=== PATIENT | male | born 1935 | race Caucasian/White ===

== ENCOUNTER 2017-11-18 17:38 | Inpatient (IN) | payer OTHER, MEDICARE ==
[2017-11-18] VITALS (8 sets, daily range): BP systolic 101–229; BP diastolic 57–97; PULSE 92–128; RESP 16–24; TEMP 97.1–99.4; O2SAT 94–96
[~2017-11-18] VITALS: Ht 180.3 cm; Wt 95.0 kg
[~2017-11-18 17:38] MED LIST: ASPI81TA82 PO; CELE200 PO; FLUO20TA20 PO; LORTA10 PO; LOVA20TA PO; METO50TA PO
[2017-11-18] MEDS ORDERED: LOVA10TA PO (17:49)
[2017-11-18] MEDS ORDERED: TRAM50TA PO (17:49)
[2017-11-18] MEDS ORDERED: PARO20TA2 PO (17:49)
[2017-11-18] MEDS ORDERED: MEMA1TAB2 PO (17:49)
[2017-11-18] MEDS ORDERED: LANTUS2P SQ (17:49)
[2017-11-18] MEDS ORDERED: LOSA25TA PO (17:49)
[2017-11-18] MEDS ORDERED: LORazepam 2 MG/ML VIAL IV PUSH ONE ×2 (18:00→19:00)
[2017-11-18 18:05] LABS: AUTOMATED NEUTROPHIL # 3.8 TH/MM3 (1.8-7.7); BASOPHIL # 0.1 TH/MM3 (0-0.2); BASOPHIL % 2.5 % (0.0-2.0); EOSINOPHIL % 0.4 % (0.0-4.0); HEMATOCRIT 39.7 % (39.0-51.0); HEMOGLOBIN 13.1 GM/DL (13.0-17.0); LYMPH % 3.7 % (9.0-44.0); LYMPHOCYTE # 0.1 TH/MM3 (1.0-4.8); MEAN CELL VOLUME 95.9 FL (80.0-100.0); MEAN CORPUSCULAR HEMOGLOBIN 31.6 PG (27.0-34.0); MEAN PLATELET VOLUME 7.3 FL (7.0-11.0); MONO % 0.6 % (0.0-8.0); NEUT % 92.8 % (16.0-70.0); PLATELET COUNT 265 TH/MM3 (150-450); RED BLOOD COUNT 4.14 MIL/MM3 (4.50-5.90); RED CELL DISTRIBUTION WIDTH 15.2 % (11.6-17.2)
--- NOTE | 2017-11-18 18:13 | PD ---
HPI Chief Complaint: Fall Time Seen by Provider: 17:40 Travel History International Travel<30 days: No Contact w/Intl Traveler<30days: No Traveled to known affect area: No History of Present Illness HPI This is a 81-year-old male who presents to the emergency department having had a fall at home. It was unwitnessed by his family. The patient has early dementia and has a history of alcoholic cirrhosis. His daughter thinks he may not of drink as much as usual because there is still some alcohol in the house. Patient does not think he hit his head but he is confused. He is reporting some pain on his left arm where he has some abrasions. Otherwise he denies any pain. History is limited as the patient is confused. PFSH Past Medical History Cancer: Yes (Bladder) Cirrhosis: Yes Dementia: Yes Diabetes: Yes Patient Takes Glucophage: No Hypertension: Yes Tetanus Vaccination: > 5 Years Influenza Vaccination: No Past Surgical History Genitourinary Surgery: Yes (Bladder R/T CA) Other Surgery: Yes (Back) Social History Alcohol Use: Yes (2 ounces liquor/day) Tobacco Use: Yes (1/2 PPD) Substance Use: No Allergies-Medications (Allergen,Severity, Reaction): Coded Allergies: No Known Allergies (Unverified Adverse Reaction, Unknown, 11/18/17) Reported Meds & Prescriptions Reported Meds & Active Scripts Active Reported Tramadol (Tramadol HCl) 50 Mg Tab 100 Mg PO Q4-6H PRN Paroxetine (Paroxetine HCl) 20 Mg Tab 20 Mg PO DAILY Lovastatin 10 Mg Tab 10 Mg PO DAILY Losartan (Losartan Potassium) 25 Mg Tab 12.5 Mg PO DAILY Memantine 10 Mg Tab 10 Mg PO BID Lantus Inj (Insulin Glargine) 1,000 Unit/10 Ml Vial 34 Units SQ DAILY Review of Systems ROS Limitations: Poor Historian Physical Exam Narrative GENERAL: Tremulous SKIN: Skin tear on the left forearm and the left dorsal aspect of the hand HEAD: Atraumatic. Normocephalic. EYES: Pupils equal and round. No injection or drainage. ENT: Moist mucous membranes NECK: Trachea midline. CARDIOVASCULAR: Regular rate and rhythm. No murmur appreciated. RESPIRATORY: Clear to auscultation. Breath sounds equal bilaterally. GASTROINTESTINAL: Abdomen soft, distended, nontender with hepatomegaly MUSCULOSKELETAL: No obvious deformities. NEUROLOGICAL: Awake and alert. No obvious cranial nerve deficits. Moving all extremities. PSYCHIATRIC: Appropriate mood and affect; insight and judgment normal. Data Data Last Documented VS Vital Signs Date Time Temp Pulse Resp B/P (MAP) Pulse Ox O2 Delivery O2 Flow Rate FiO2 11/18/17 18:00 99.4 128 22 229/97 (141) 95 Nasal Cannula 2.00 Orders Orders Complete Blood Count With Diff (11/18/17 17:47) Comprehensive Metabolic Panel (11/18/17 17:47) Ct Brain W/O Iv Contrast(Rout) (11/18/17 ) Lorazepam Inj (Ativan Inj) (11/18/17 18:00) ^ Insert Iv (11/18/17 17:47) Lorazepam Inj (Ativan Inj) (11/18/17 19:00) Labs Laboratory Tests Test 11/18/17 17:50 White Blood Count 4.0 TH/MM3 Red Blood Count 4.14 MIL/MM3 Hemoglobin 13.1 GM/DL Hematocrit 39.7 % Mean Corpuscular Volume 95.9 FL Mean Corpuscular Hemoglobin 31.6 PG Mean Corpuscular Hemoglobin Concent 33.0 % Red Cell Distribution Width 15.2 % Platelet Count 265 TH/MM3 Mean Platelet Volume 7.3 FL Neutrophils (%) (Auto) 92.8 % Lymphocytes (%) (Auto) 3.7 % Monocytes (%) (Auto) 0.6 % Eosinophils (%) (Auto) 0.4 % Basophils (%) (Auto) 2.5 % Neutrophils # (Auto) 3.8 TH/MM3 Lymphocytes # (Auto) 0.1 TH/MM3 Monocytes # (Auto) 0.0 TH/MM3 Eosinophils # (Auto) 0.0 TH/MM3 Basophils # (Auto) 0.1 TH/MM3 CBC Comment DIFF FINAL Differential Comment Blood Urea Nitrogen 30 MG/DL Creatinine 1.80 MG/DL Random Glucose 307 MG/DL Total Protein 6.1 GM/DL Albumin 2.5 GM/DL Calcium Level 7.4 MG/DL Alkaline Phosphatase 158 U/L Aspartate Amino Transf (AST/SGOT) 8 U/L Alanine Aminotransferase (ALT/SGPT) 28 U/L Total Bilirubin 0.3 MG/DL Sodium Level 140 MEQ/L Potassium Level 3.8 MEQ/L Chloride Level 114 MEQ/L Carbon Dioxide Level 17.1 MEQ/L Anion Gap 9 MEQ/L Estimat Glomerular Filtration Rate 37 ML/MIN Protein Corrected Calcium 7.9 MG/DL MDM Medical Decision Making Medical Screen Exam Complete: Yes Emergency Medical Condition: Yes Interpretation(s) Temperature is 99.4, tachycardic, hypertensive No leukocytosis 92% neutrophils Renal insufficiency worse from prior Hyperglycemia Bicarb is 17 CT of the head: No acute process Differential Diagnosis Acute alcohol withdrawal, delirium tremens, intracranial hemorrhage, dehydration , sepsis Narrative Course This is a 81-year-old male who presents to the emergency department with a history of heavy alcohol use and dementia. He had a fall earlier today and is more confused per his family. He is very tremulous on exam. He is also tender in the right and left upper abdomen. He was hypertensive and tachycardic on arrival concerning for acute alcohol withdrawal. He was given 1 mg of Ativan. His blood pressure improved but he continued to be tremulous. He was given additional [address] of the head is unremarkable. Labs demonstrate some dehydration. On my impression the patient appears to be more dyspneic during his stay and I am concerned he is deteriorating. I discussed this with Dr. Byrd in the family. Chest x-ray and CT abdomen and pelvis will be obtained. Patient will likely require admission but disposition will be made after imaging. Cynthia Johnson MD November 18, 2017 18:13
[2017-11-18 18:31] LABS: ALBUMIN 2.5 GM/DL (3.4-5.0); BICARBONATE 17.1 MEQ/L (21.0-32.0); CALCIUM 7.4 MG/DL (8.5-10.1); CALCIUM-PROTEIN CORRECTED 7.9 MG/DL (8.5-10.1); CREATININE 1.8 MG/DL (0.60-1.30); TOTAL BILIRUBIN ADULT 0.3 MG/DL (0.2-1.0); TOTAL PROTEIN 6.1 GM/DL (6.4-8.2)
--- NOTE | 2017-11-18 18:37 | RADRPT ---
EXAM DATE/TIME: 11/18/2017 18:09 [facility] COMPARISON: No previous studies available for comparison. INDICATIONS : Unwitnessed fall. Dementia. RADIATION DOSE: 56.43 CTDIvol (mGy) MEDICAL HISTORY : Hypertension. Carcinoma, bladder. Dementia. SURGICAL HISTORY : Bladder surgery. ENCOUNTER: Initial ACUITY: 1 day PAIN SCALE: Non-responsive LOCATION: cranial TECHNIQUE: Multiple contiguous axial images were obtained of the head. Using automated exposure control and adj ustment of the mA and/or kV according to patient size, radiation dose was kept as low as reasonably a chievable to obtain optimal diagnostic quality images. DICOM format image data is available electro nically for review and comparison. FINDINGS: CEREBRUM: The ventricles and cortical sulci are widened. There is decreased density in the periventricular whit e matter. No evidence of midline shift, mass lesion, hemorrhage or acute infarction. No extra-axial fluid collections are seen. POSTERIOR FOSSA: The cerebellum and brainstem are intact. The 4th ventricle is midline. The cerebellopontine angle i s unremarkable. EXTRACRANIAL: The visualized portion of the orbits is intact. There is focal mucosal disease at the right maxillary and left sphenoid sinuses. SKULL: The calvaria is intact. No evidence of skull fracture. CONCLUSION: 1. No acute intracranial abnormality seen. 2. Age related atrophy and suspected small vessel ischemic change in the white matter. 3. Sinus disease. Binh Sosa MD on November 18, 2017 at 18:33 Board Certified Radiologist. This report was verified electronically.
--- NOTE | 2017-11-18 20:26 | RADRPT ---
EXAM DATE/TIME: 11/18/2017 19:53 [facility] COMPARISON: No previous studies available for comparison. INDICATIONS : Abdominal pain post fall. ORAL CONTRAST: No oral contrast ingested. RADIATION DOSE: 20.53 CTDIvol (mGy) MEDICAL HISTORY : Hypertension. Cirrhosis. Carcinoma, bladder.Diabetes. Dementia. SURGICAL HISTORY : Bladder. ENCOUNTER: Initial ACUITY: 1 day PAIN SCALE: 4/10 LOCATION: Right abdomen TECHNIQUE: Volumetric scanning of the abdomen and pelvis was performed. Using automated exposure control and ad justment of the mA and/or kV according to patient size, radiation dose was kept as low as reasonably achievable to obtain optimal diagnostic quality images. DICOM format image data is available electro nically for review and comparison. FINDINGS: LOWER LUNGS: The visualized lower lungs are clear. LIVER: Homogeneous density without lesion. There is no dilation of the biliary tree. No calcified gallston es. SPLEEN: Normal size without lesion. PANCREAS: Within normal limits. KIDNEYS: There are low density masses seen bilaterally likely related to cysts. The largest mass is seen at th e anterior mid to inferior left kidney measuring 3.6 cm. These low-density masses are nonspecific on this noncontrast CT examination. There is mild dilatation of the collecting systems bilaterally. The ureters extending to the right upper pelvis where they enter a segment of bowel likely used for an il eal loop that then empties into the residual bladder or a neobladder. There is a 1.9 cm stone seen in this bladder. ADRENAL GLANDS: Within normal limits. VASCULAR: There is no aortic aneurysm. Atherosclerotic calcifications are seen. BOWEL/MESENTERY: Scattered colonic diverticula are seen without inflammation. ABDOMINAL WALL: There is small umbilical hernia containing mesenteric fat. RETROPERITONEUM: There is no lymphadenopathy. BLADDER: There is either a residual bladder or neobladder seen. This has an elongated shape. Both ureters ente ring this through a common segment of small bowel in the superior right lateral aspect of this bladde r like structure. There is a 1.9 cm stone within the bladder. REPRODUCTIVE: The patient is status post prostatectomy. INGUINAL: There is no lymphadenopathy or hernia. MUSCULOSKELETAL: There is degenerative change in the lumbar spine. Old healed rib fractures are seen. There is promine nt concavity to the superior aspect of L4. This appears chronic. CONCLUSION: 1. Status post prostatectomy and either partial or total cystectomy with a postoperative appearance o f the urinary bladder. There is a 1.9 cm stone seen within the urinary bladder. 2. There is mild dilatation of the collecting systems bilaterally. No prior studies are available for comparison. 3. Both ureters enter a segment of bowel in the right lower quadrant then empties into this neobladde r at the superior right lateral aspect of the bladder. 4. Low density masses in the kidneys bilaterally likely related to cysts although these are nonspecif ic on this noncontrast CT examination. Scattered colonic diverticula. 5. Small umbilical hernia containing mesenteric fat. 6. Chronic bony change. Binh Sosa MD on November 18, 2017 at 20:15 Board Certified Radiologist. This report was verified electronically.
[2017-11-18] MEDS ORDERED: SODIUM CHLORID 0.9% 500 ML INJ 500 ML IV ONE (20:30)
[2017-11-18 21:00] LABS: BILIRUBIN, URINE NEG (NEG); BLOOD, URINE SMALL (NEG); GLUCOSE,URINE 100 mg/dL (NEG); KETONE, URINE NEG (NEG); NITRITE,URINE POS (NEG); PH, URINE GREATER/EQUAL 9.0 (5.0-8.5); URINE LEUKOCYTE ESTERASE LARGE (NEG)
[2017-11-18 21:12] LABS: URINE COLOR STRAW (YELLW/STRAW)
[2017-11-18 21:13] LABS: BACTERIA, URINE MANY /hpf; MUCUS URINE RARE /lpf (OCC); RBC, URINE 0-3 /hpf (0-3); TRANSITIONAL EPI CELLS, URINE 0-2 /hpf
[2017-11-18 21:14] LABS: TRIPLE PHOSPHATE CRYSTAL,URINE FEW /hpf
--- NOTE | 2017-11-18 21:16 | RADRPT ---
EXAM DATE/TIME: 11/18/2017 20:23 [facility] COMPARISON: No previous studies available for comparison. INDICATIONS : Short of breath. MEDICAL HISTORY : Hypertension. Cirrhosis. Carcinoma, bladder.Diabetes. Dementia. SURGICAL HISTORY : None. ENCOUNTER: Initial ACUITY: 1 day PAIN SCORE: Non-responsive. LOCATION: Bilateral chest FINDINGS: A single view of the chest demonstrates the lungs to be symmetrically aerated without evidence of mas s, infiltrate or effusion. There is elevation of the left hemidiaphragm. The cardiomediastinal conto urs are unremarkable. Osseous structures are intact. CONCLUSION: No acute disease. There is elevation of the left hemidiaphragm. Binh Sosa MD on November 18, 2017 at 21:14 Board Certified Radiologist. This report was verified electronically.
[2017-11-18] MEDS ORDERED: cefTRIAXone INJ 1,000 MG in SODIUM CHLORIDE 0.9% INJ 100 ML IV ONE (21:30)
--- NOTE | 2017-11-18 21:33 | PD ---
Physical Exam Narrative Patient signed out to me by Dr. Johnson. Please see her documentation for complete details. Briefly, patient is a 81 year old male brought in by family after a fall today. Patient has some degree of dementia and is a poor historian. He was noted to be hypertensive and tachycardic by the previous provider. He does have a history of alcoholism and was treated with Ativan for possible withdrawal. He is tremulous on exam and tachycardic. Data Data Last Documented VS Vital Signs Date Time Temp Pulse Resp B/P (MAP) Pulse Ox O2 Delivery O2 Flow Rate FiO2 11/18/17 21:05 92 16 111/64 (80) 96 Nasal Cannula 2.00 11/18/17 18:00 99.4 Orders Orders Complete Blood Count With Diff (11/18/17 17:47) Comprehensive Metabolic Panel (11/18/17 17:47) Ct Brain W/O Iv Contrast(Rout) (11/18/17 ) Lorazepam Inj (Ativan Inj) (11/18/17 18:00) ^ Insert Iv (11/18/17 17:47) Lorazepam Inj (Ativan Inj) (11/18/17 19:00) Chest, Single Ap (11/18/17 ) Lactic Acid (11/18/17 19:11) Blood Culture (11/18/17 19:11) Arterial Blood Gas (Abg) (11/18/17 ) Ct Abd/Pel W/O Iv Contrast (11/18/17 ) Urinalysis - C+S If Indicated (11/18/17 19:13) Electrocardiogram (11/18/17 ) Lipase (11/18/17 17:50) Sodium Chlorid 0.9% 500 Ml Inj (Ns 500 M (11/18/17 20:30) Urine Culture (11/18/17 20:50) Ceftriaxone Inj (Rocephin Inj) (11/18/17 21:30) Admit Order (Ed Use Only) (11/18/17 ) Labs Laboratory Tests Test 11/18/17 17:50 11/18/17 19:30 11/18/17 19:40 11/18/17 20:50 White Blood Count 4.0 TH/MM3 Red Blood Count 4.14 MIL/MM3 Hemoglobin 13.1 GM/DL Hematocrit 39.7 % Mean Corpuscular Volume 95.9 FL Mean Corpuscular Hemoglobin 31.6 PG Mean Corpuscular Hemoglobin Concent 33.0 % Red Cell Distribution Width 15.2 % Platelet Count 265 TH/MM3 Mean Platelet Volume 7.3 FL Neutrophils (%) (Auto) 92.8 % Lymphocytes (%) (Auto) 3.7 % Monocytes (%) (Auto) 0.6 % Eosinophils (%) (Auto) 0.4 % Basophils (%) (Auto) 2.5 % Neutrophils # (Auto) 3.8 TH/MM3 Lymphocytes # (Auto) 0.1 TH/MM3 Monocytes # (Auto) 0.0 TH/MM3 Eosinophils # (Auto) 0.0 TH/MM3 Basophils # (Auto) 0.1 TH/MM3 CBC Comment DIFF FINAL Differential Comment Blood Urea Nitrogen 30 MG/DL Creatinine 1.80 MG/DL Random Glucose 307 MG/DL Total Protein 6.1 GM/DL Albumin 2.5 GM/DL Calcium Level 7.4 MG/DL Alkaline Phosphatase 158 U/L Aspartate Amino Transf (AST/SGOT) 8 U/L Alanine Aminotransferase (ALT/SGPT) 28 U/L Total Bilirubin 0.3 MG/DL Sodium Level 140 MEQ/L Potassium Level 3.8 MEQ/L Chloride Level 114 MEQ/L Carbon Dioxide Level 17.1 MEQ/L Anion Gap 9 MEQ/L Estimat Glomerular Filtration Rate 37 ML/MIN Protein Corrected Calcium 7.9 MG/DL Lipase 126 U/L Blood Gas Puncture Site RT BRACHIAL Blood Gas Patient Temperature 98.6 Blood Gas HCO3 15 mmol/L Blood Gas Base Excess -9.9 mmol/L Blood Gas Oxygen Saturation 94 % Arterial Blood pH 7.34 Arterial Blood Partial Pressure CO2 28 mmHG Arterial Blood Partial Pressure O2 90 mmHG Arterial Blood Oxygen Content 19.0 Vol % Arterial Blood Carboxyhemoglobin 2.2 % Arterial Blood Methemoglobin 1.4 % Blood Gas Hemoglobin 14.4 G/DL Oxygen Delivery Device NASAL CANNULA Blood Gas Liter Flow 4 L/M Lactic Acid Level 3.7 mmol/L Urine Collection Type CLEAN CATCH Urine Color STRAW Urine Turbidity CLOUDY Urine pH GREATER/EQUAL 9.0 Urine Specific [place] 1.015 Urine Protein 100 mg/dL Urine Glucose (UA) 100 mg/dL Urine Ketones NEG mg/dL Urine Occult Blood SMALL Urine Nitrite POS Urine Bilirubin NEG Urine Urobilinogen 0.2 MG/DL Urine Leukocyte Esterase LARGE Urine RBC 0-3 /hpf Urine WBC 6-8 /hpf Urine Transitional Epithelial Cells 0-2 /hpf Urine Triple Phosphate Crystals FEW /hpf Urine Bacteria MANY /hpf Urine Mucus RARE /lpf Microscopic Urinalysis Comment CULTURE INDICATED MDM Supervised Visit with [facility]: No Narrative Course Labs show dehydration with a BUN of 30 and Cr of 1.8. Lactic acid is 3.7. Urinalysis is positive for UTI. CXR and ct/abdomen and pelvis show no acute abnormalities. Last [address] 11/18/17 0000 Signed Impressions: Service Date/Time: Saturday, November 18, 2017 18:09 - CONCLUSION: 1. No acute intracranial abnormality seen. 2. Age related atrophy and suspected small vessel ischemic change in the white matter. 3. Sinus disease. Binh Sosa MD Chest X-Ray 11/18/17 0000 Signed Impressions: Service Date/Time: Saturday, November 18, 2017 20:23 - CONCLUSION: No acute disease. There is elevation of the left hemidiaphragm. Binh Sosa MD Abdomen/Pelvis CT 11/18/17 0000 Signed Impressions: Service Date/Time: Saturday, November 18, 2017 19:53 - CONCLUSION: 1. Status post prostatectomy and either partial or total cystectomy with a postoperative appearance of the urinary bladder. There is a 1.9 cm stone seen within the urinary bladder. 2. There is mild dilatation of the collecting systems bilaterally. No prior studies are available for comparison. 3. Both ureters enter a segment of bowel in the right lower quadrant then empties into this neobladder at the superior right lateral aspect of the bladder. 4. Low density masses in the kidneys bilaterally likely related to cysts although these are nonspecific on this noncontrast CT examination. Scattered colonic diverticula. 5. Small umbilical hernia containing mesenteric fat. 6. Chronic bony change. Binh Sosa MD Vitals normalized with Ativan. Given IVF and Rocephin. Admitted for further management. Diagnosis Primary Impression: UTI (urinary tract infection) Qualified Codes: N30.00 - Acute cystitis without hematuria Additional Impressions: Altered mental status Qualified Codes: R41.82 - Altered mental status, unspecified Dehydration Withdrawal symptoms, alcohol Qualified Codes: F10.230 - Alcohol dependence with withdrawal, uncomplicated Admitting Information Admitting Physician Requests: Admit Keara Byrd MD November 18, 2017 21:33
[2017-11-18] MEDS ORDERED: SODIUM CHLORIDE 0.9% FLUSH 10 ML FLUSH IV FLUSH PRN (21:45)
[2017-11-18] MEDS ORDERED: LACTULOSE SYRUP 20 GM/30 ML CUP PO PRN (21:45)
[2017-11-18] MEDS: INSULIN DETEMIR 100 UNITS/ML VIAL SQ SCH (21:45)
[2017-11-18] MEDS ORDERED: LORazepam 2 MG TAB PO PRN (21:45)
[2017-11-18] MEDS ORDERED: LORazepam 1 MG TAB PO PRN (21:45)
[2017-11-18] MEDS ORDERED: SENNOSIDES 8.6 MG TAB PO PRN (21:45)
[2017-11-18] MEDS ORDERED: METOPROLOL TARTRATE 25 MG TAB PO ONE (21:45)
[2017-11-18] MEDS ORDERED: THIAMINE HCL 100 MG TAB PO ONE (21:45)
[2017-11-18] MEDS ORDERED: NALOXONE HCL 0.4 MG/ML AMP IV PUSH PRN (21:45)
[2017-11-18] MEDS ORDERED: SODIUM BICARBONATE 650 MG TAB PO ONE (21:45)
[2017-11-18] MEDS ORDERED: FLUMAZENIL 0.5 MG/5 ML VIAL IV PUSH PRN (21:45)
[2017-11-18] MEDS ORDERED: LORazepam 2 MG/ML VIAL IV PUSH PRN ×3 (21:45)
[2017-11-18] MEDS ORDERED: BISACODYL 10 MG SUPP RECTAL PRN (21:45)
[2017-11-18] MEDS ORDERED: MAGNESIUM HYDROXIDE SUSP 30 ML CUP PO PRN (21:45)
[2017-11-18] MEDS: SODIUM CHLOR 0.9% 1000 ML INJ 1,000 ML IV SCH (21:59)
[2017-11-18] MEDS ORDERED: SODIUM BICARBONATE 325 MG TAB PO ONE (22:45)
[2017-11-19] VITALS (7 sets, daily range): BP systolic 109–139; BP diastolic 53–65; PULSE 70–88; RESP 19–22; TEMP 96.6–98.3; O2SAT 95–96
[2017-11-19 07:20] LABS: ALBUMIN 2.3 GM/DL (3.4-5.0); ALKALINE PHOSPHATASE 133 U/L (45-117); ALT (GPT) 24 U/L (12-78); AST (GOT) 9 U/L (15-37); BICARBONATE 17.5 MEQ/L (21.0-32.0); BLOOD UREA NITROGEN 40 MG/DL (7-18); CALCIUM 8.2 MG/DL (8.5-10.1); CHLORIDE 119 MEQ/L (98-107); GLOMERULAR FILTRATION RATE 28 ML/MIN (>89); GLUCOSE,RANDOM 197 MG/DL (74-106); SODIUM (NA) 143 MEQ/L (136-145); TOTAL BILIRUBIN ADULT 0.3 MG/DL (0.2-1.0); TOTAL PROTEIN 6.1 GM/DL (6.4-8.2)
[2017-11-19 07:24] LABS: AUTOMATED NEUTROPHIL # 23.2 TH/MM3 (1.8-7.7); BASOPHIL # 0.1 TH/MM3 (0-0.2); BASOPHIL % 0.2 % (0.0-2.0); EOSINOPHIL # 0.1 TH/MM3 (0-0.4); EOSINOPHIL % 0.3 % (0.0-4.0); HEMOGLOBIN 12.5 GM/DL (13.0-17.0); LYMPH % 5.6 % (9.0-44.0); LYMPHOCYTE # 1.5 TH/MM3 (1.0-4.8); MEAN CELL VOLUME 96.2 FL (80.0-100.0); MEAN CORPUSCULAR HEMOGLOBIN 31.6 PG (27.0-34.0); MEAN CORPUSCULAR HGB CONC 32.9 % (32.0-36.0); MEAN PLATELET VOLUME 8.2 FL (7.0-11.0); MONO % 4.9 % (0.0-8.0); MONOCYTE # 1.3 TH/MM3 (0-0.9); PLATELET COUNT 333 TH/MM3 (150-450); RED BLOOD COUNT 3.95 MIL/MM3 (4.50-5.90); RED CELL DISTRIBUTION WIDTH 15.8 % (11.6-17.2); WHITE BLOOD COUNT 26.2 TH/MM3 (4.0-11.0)
[2017-11-19 07:58] LABS: BANDS 15 % (0-6); LYMPHOCYTES 6 % (9-44); METAMYELOCYTES 2 % (0-1); MONOCYTES 4 % (0-8); NEUTROPHIL # MANUAL DIFF 23.6 TH/MM3 (1.8-7.7); POLYS (SEG NEUTROPHILS) 73 % (16-70)
[2017-11-19] MEDS: SODIUM CHLOR 0.9% 1000 ML INJ 1,000 ML IV SCH (08:00)
[2017-11-19] MEDS: INSULIN ASPART SUPPLEMENTAL SCALE SQ SCH ×4 (08:06→21:00)
[2017-11-19] MEDS: INSULIN DETEMIR 100 UNITS/ML VIAL SQ SCH ×2 (08:06→21:03)
[2017-11-19] MEDS: THIAMINE HCL 100 MG TAB PO SCH (08:08)
[2017-11-19] MEDS: PRAVASTATIN SOD 10 MG TAB PO SCH (08:08)
[2017-11-19] MEDS: MEMANTINE HCL 10 MG TAB PO SCH ×2 (08:08→20:59)
[2017-11-19] MEDS: PARoxetine HCL 20 MG TAB PO SCH (08:08)
[2017-11-19] MEDS: SODIUM CHLORIDE 0.9% FLUSH 10 ML FLUSH IV FLUSH SCH ×2 (09:00→20:59)
--- NOTE | 2017-11-19 09:21 | EKG ---
Date Performed: 11/18/2017 Time Performed: 19:25:47 PTAGE: 81 years EKG: SINUS TACHYCARDIA WITH FREQUENT VENTRICULAR PREMATURE COMPLEXES MARKED LEFT AXIS DEVIATION LOW QRS VOLTAGE IN PRECORDIAL LEADS MINIMAL ST DEPRESSION ABNORMAL ECG INTERPRETATION BASED ON A DEFA ULT AGE OF 42 YEARS NO PREVIOUS TRACING DOCTOR: Olu Ohara Interpretating Date/Time 11/19/2017 09:16:06
--- NOTE | 2017-11-19 12:14 | HHI.HP ---
[facility] Anirudh Antoine MD Admission Diagnosis UTI, AMS, alcohol withdrawal Diagnoses: Chief Complaint: Confusion Travel History International Travel<30 Days: No Contact w/Intl Traveler <30 Da: No Traveled to Known Affected Are: No History of Present Illness The patient is a 81-year-old male with a past medical history of alcoholic cirrhosis and dementia who is presenting to the hospital with altered mental status and recent falls. The patient does not know that he is in the hospital and thinks he is at home. He denies any symptoms. He says he is not having any pain with urination. He says he is not having any shortness of breath or pain. He says he has 2 whiskey drinks daily. He says that he smokes 1 pack per day and has no intention of quitting. Per report the patient fell down at home and it was unwitnessed. The patient says he is hungry. He was able to work with physical therapy earlier. Discussed with nursing at the bedside. He has not been requiring Ativan today. Review of Systems Except as stated in HPI: all other systems reviewed are Neg Past Family Social History Past Medical History Bladder cancer Alcoholic cirrhosis Dementia Diabetes Hypertension Past Surgical History Bladder surgery Back surgery Allergies: Coded Allergies: No Known Allergies (Unverified Allergy, Unknown, 11/18/17) Family History Pt unable to elaborate Social History The pt drinks two whiskey drinks daily. He smokes 1 PPD. Physical Exam Vital Signs Vital Signs Date Time Temp Pulse Resp B/P (MAP) Pulse Ox O2 Delivery O2 Flow Rate FiO2 11/19/17 08:00 97.7 88 20 128/59 (82) 95 11/19/17 04:00 96.9 73 20 109/53 (71) 96 11/19/17 00:11 81 11/18/17 23:30 94 Nasal Cannula 2.00 11/18/17 23:30 97.1 94 20 122/57 (78) 94 11/18/17 22:13 96 16 114/57 (76) 96 Nasal Cannula 2.00 11/18/17 21:05 92 16 111/64 (80) 96 Nasal Cannula 2.00 11/18/17 21:01 98 16 111/64 (80) 96 Nasal Cannula 2.00 11/18/17 20:22 98 16 101/64 (76) 96 Nasal Cannula 2.00 11/18/17 19:07 123 24 126/68 (87) 95 Nasal Cannula 2.00 11/18/17 18:00 99.4 128 22 229/97 (141) 95 Nasal Cannula 2.00 11/18/17 17:40 128 22 95 Nasal Cannula 2.00 11/18/17 17:40 99.4 128 22 229/97 (141) 95 Physical Exam GENERAL: No distress. SKIN: Skin tear on the left forearm and the left dorsal aspect of the hand. HEAD: Atraumatic. Normocephalic. EYES: Pupils equal and round. No injection or drainage. ENT: Moist mucous membranes NECK: Trachea midline. CARDIOVASCULAR: Regular rate and rhythm. No murmur appreciated. RESPIRATORY: Clear to auscultation. Breath sounds equal bilaterally. GASTROINTESTINAL: Abdomen soft, distended, nontender. MUSCULOSKELETAL: No obvious deformities. No lower extremity edema. NEUROLOGICAL: Confused. Slightly tremulous. No obvious cranial nerve deficits. Moving all extremities. PSYCHIATRIC: Calm. Laboratory Laboratory Tests Test 11/18/17 17:50 11/18/17 19:30 11/18/17 19:40 11/18/17 20:50 White Blood Count 4.0 Red Blood Count 4.14 Hemoglobin 13.1 Hematocrit 39.7 Mean Corpuscular Volume 95.9 Mean Corpuscular Hemoglobin 31.6 Mean Corpuscular Hemoglobin Concent 33.0 Red Cell Distribution Width 15.2 Platelet Count 265 Mean Platelet Volume 7.3 Neutrophils (%) (Auto) 92.8 Lymphocytes (%) (Auto) 3.7 Monocytes (%) (Auto) 0.6 Eosinophils (%) (Auto) 0.4 Basophils (%) (Auto) 2.5 Neutrophils # (Auto) 3.8 Lymphocytes # (Auto) 0.1 Monocytes # (Auto) 0.0 Eosinophils # (Auto) 0.0 Basophils # (Auto) 0.1 CBC Comment DIFF FINAL Differential Comment Blood Urea Nitrogen 30 Creatinine 1.80 Random Glucose 307 Total Protein 6.1 Albumin 2.5 Calcium Level 7.4 Alkaline Phosphatase 158 Aspartate Amino Transf (AST/SGOT) 8 Alanine Aminotransferase (ALT/SGPT) 28 Total Bilirubin 0.3 Sodium Level 140 Potassium Level 3.8 Chloride Level 114 Carbon Dioxide Level 17.1 Anion Gap 9 Estimat Glomerular Filtration Rate 37 Protein Corrected Calcium 7.9 Lipase 126 Blood Gas Puncture Site RT BRACHIAL Blood Gas Patient Temperature 98.6 Blood Gas HCO3 15 Blood Gas Base Excess -9.9 Blood Gas Oxygen Saturation 94 Arterial Blood pH 7.34 Arterial Blood Partial Pressure CO2 28 Arterial Blood Partial Pressure O2 90 Arterial Blood Oxygen Content 19.0 Arterial Blood Carboxyhemoglobin 2.2 Arterial Blood Methemoglobin 1.4 Blood Gas Hemoglobin 14.4 Oxygen Delivery Device NASAL CANNULA Blood Gas Liter Flow 4 Lactic Acid Level 3.7 Urine Collection Type CLEAN CATCH Urine Color STRAW Urine Turbidity CLOUDY Urine pH GREATER/EQUAL 9.0 Urine Specific [place] 1.015 Urine Protein 100 Urine Glucose (UA) 100 Urine Ketones NEG Urine Occult Blood SMALL Urine Nitrite POS Urine Bilirubin NEG Urine Urobilinogen 0.2 Urine Leukocyte Esterase LARGE Urine RBC 0-3 Urine WBC 6-8 Urine Transitional Epithelial Cells 0-2 Urine Triple Phosphate Crystals FEW Urine Bacteria MANY Urine Mucus RARE Microscopic Urinalysis Comment CULTURE INDICATED Test 11/19/17 06:28 White Blood Count 26.2 Red Blood Count 3.95 Hemoglobin 12.5 Hematocrit 38.0 Mean Corpuscular Volume 96.2 Mean Corpuscular Hemoglobin 31.6 Mean Corpuscular Hemoglobin Concent 32.9 Red Cell Distribution Width 15.8 Platelet Count 333 Mean Platelet Volume 8.2 Neutrophils (%) (Auto) 89.0 Lymphocytes (%) (Auto) 5.6 Monocytes (%) (Auto) 4.9 Eosinophils (%) (Auto) 0.3 Basophils (%) (Auto) 0.2 Neutrophils # (Auto) 23.2 Lymphocytes # (Auto) 1.5 Monocytes # (Auto) 1.3 Eosinophils # (Auto) 0.1 Basophils # (Auto) 0.1 CBC Comment AUTO DIFF Differential Total Cells Counted 100 Neutrophils % (Manual) 73 Band Neutrophils % 15 Lymphocytes % 6 Monocytes % 4 Neutrophils # (Manual) 23.6 Metamyelocytes 2 Differential Comment FINAL DIFF MANUAL Platelet Estimate NORMAL Platelet Morphology Comment NORMAL Blood Urea Nitrogen 40 Creatinine 2.30 Random Glucose 197 Total Protein 6.1 Albumin 2.3 Calcium Level 8.2 Alkaline Phosphatase 133 Aspartate Amino Transf (AST/SGOT) 9 Alanine Aminotransferase (ALT/SGPT) 24 Total Bilirubin 0.3 Sodium Level 143 Potassium Level 4.8 Chloride Level 119 Carbon Dioxide Level 17.5 Anion Gap 7 Estimat Glomerular Filtration Rate 28 Date/Time Source Procedure Growth Status 11/18/17 19:40 Blood Peripheral Aerobic Blood Culture - Preliminary NO GROWTH IN 1 DAY Resulted 11/18/17 19:40 Blood Peripheral Anaerobic Blood Culture - Preliminary NO GROWTH IN 1 DAY Resulted 11/18/17 20:50 Urine Clean Catch Urine Culture Pending Received Result Diagram: 11/19/1728 11/19/17627 Imaging Last Impressions Head CT 11/18/17 0000 Signed Impressions: Service Date/Time: Saturday, November 18, 2017 18:09 - CONCLUSION: 1. No acute intracranial abnormality seen. 2. Age related atrophy and suspected small vessel ischemic change in the white matter. 3. Sinus disease. Binh Sosa MD Chest X-Ray 11/18/17 0000 Signed Impressions: Service Date/Time: Saturday, November 18, 2017 20:23 - CONCLUSION: No acute disease. There is elevation of the left hemidiaphragm. Binh Sosa MD Abdomen/Pelvis CT 11/18/17 0000 Signed Impressions: Service Date/Time: Saturday, November 18, 2017 19:53 - CONCLUSION: 1. Status post prostatectomy and either partial or total cystectomy with a postoperative appearance of the urinary bladder. There is a 1.9 cm stone seen within the urinary bladder. 2. There is mild dilatation of the collecting systems bilaterally. No prior studies are available for comparison. 3. Both ureters enter a segment of bowel in the right lower quadrant then empties into this neobladder at the superior right lateral aspect of the bladder. 4. Low density masses in the kidneys bilaterally likely related to cysts although these are nonspecific on this noncontrast CT examination. Scattered colonic diverticula. 5. Small umbilical hernia containing mesenteric fat. 6. Chronic bony change. Binh Sosa MD Caprini VTE Risk Assessment Caprini VTE Risk Assessment: Mod/High Risk (score >= 2) Caprini Risk Assessment Model Point Value = 1 Point Value = 2 Point Value = 3 Point Value = 5 Age 41-60 Minor surgery BMI > 25 kg/m2 Swollen legs Varicose veins or History of unexplained or recurrent spontaneous Oral contraceptives or hormone replacement Sepsis (< 1 month) Serious lung disease, including pneumonia (< 1 month) Abnormal pulmonary function Acute myocardial infarction Congestive heart failure (< 1 month) History of inflammatory bowel disease Medical patient at bed rest Age 61-74 Arthroscopic surgery Major open surgery (> 45 min) Laparoscopic surgery (> 45 min) Malignancy Confined to bed (> 72 hours) Immobilizing plaster cast Central venous access Age >= 75 History of VTE Family history of VTE Factor V Leiden Prothrombin [id number] Lupus anticoagulant Anticardiolipin antibodies Elevated serum homocysteine Heparin-induced thrombocytopenia Other congenital or acquired thrombophilia Stroke (< 1 month) Elective arthroplasty Hip, pelvis, or leg fracture Acute spinal cord injury (< 1 month) Prophylaxis Regimen Total Risk Factor Score Risk Level Prophylaxis Regimen 0-1 Low Early ambulation 2 Moderate Order ONE of the following: *Sequential Compression Device (SCD) *Heparin 5000 units SQ BID 3-4 Higher Order ONE of the following medications: *Heparin 5000 units SQ TID *Enoxaparin/Lovenox 40 mg SQ daily (WT < 150 kg, CrCl > 30 mL/min) *Enoxaparin/Lovenox 30 mg SQ daily (WT < 150 kg, CrCl > 10-29 mL/min) *Enoxaparin/Lovenox 30 mg SQ BID (WT < 150 kg, CrCl > 30 mL/min) AND/OR *Sequential Compression Device (SCD) 5 or more Highest Order ONE of the following medications: *Heparin 5000 units SQ TID (Preferred with Epidurals) *Enoxaparin/Lovenox 40 mg SQ daily (WT < 150 kg, CrCl > 30 mL/min) *Enoxaparin/Lovenox 30 mg SQ daily (WT < 150 kg, CrCl > 10-29 mL/min) *Enoxaparin/Lovenox 30 mg SQ BID (WT < 150 kg, CrCl > 30 mL/min) AND *Sequential Compression Device (SCD) Assessment and Plan Assessment and Plan Acute metabolic encephalopathy May be secondary to sepsis and alcohol withdrawal. CT head unremarkable. - check TSH, B12 and ammonia levels. - IV antibiotics. - PT/ OT. - neuro checks. Sepsis/ UTI UA indicative of infection. Pt developed marked leukocytosis overnight. - continue IV ceftriaxone. - IVFs. - follow urine and blood cultures. Acute renal failure Possibly pre-renal, exacerbated by infection. Appears to have chronic component. - continue IVFs and avoid nephrotoxins. Alcoholic cirrhosis/ withdrawal Drinks whiskey daily. - CIWA protocol. - seizure precautions. - cessation instruction. Tobacco dependence The pt smokes 1 PPD and has no intention of quitting. - cessation instruction. - nebs as needed. Diabetes Relatively well controlled. - insulin sliding scale. Hypertension Blood pressure markedly elevated on admission, normal at this time. - holding home antihypertensives. Resume as appropriate. Bladder cancer CT abdomen showed: Status post prostatectomy and either partial or total cystectomy with a postoperative appearance of the urinary bladder; There is a 1.9 cm stone seen within the urinary bladder; There is mild dilatation of the collecting systems bilaterally; Both ureters enter a segment of bowel in the right lower quadrant then empties into this neobladder at the superior right lateral aspect of the bladder; Low density masses in the kidneys bilaterally likely related to cysts although these are nonspecific on this noncontrast CT examination. No complaints of dysuria. - Pruitt if needed. - outpt follow-up. PPx: SCDs Discussed Condition With Pt, nurse Physician Certification 2 Midnight Certification Type: Admission for Inpatient Services Order for Inpatient Services The services are ordered in accordance with Medicare regulations or non- Medicare payer requirements, as applicable. In the case of services not specified as inpatient-only, they are appropriately provided as inpatient services in accordance with the 2-midnight benchmark. Estimated LOS (days): 2 days is the estimated time the patient will need to remain in the hospital, assuming treatment plan goals are met and no additional complications. Post-Hospital Plan: Not yet determined Jeffry Blackmon DO November 19, 2017 12:13
[2017-11-19] MEDS: SODIUM CHLOR 0.45% 1000 ML INJ 1,000 ML IV SCH ×2 (12:28→23:47)
[2017-11-19 14:29] LABS: PROTHROMBIN TIME - PATIENT 10.1 SEC (9.8-11.6)
[2017-11-19] MEDS: cefTRIAXone INJ 1,000 MG in SODIUM CHLORIDE 0.9% INJ 100 ML IV SCH (20:59)
[2017-11-19] MEDS: LORazepam 2 MG/ML VIAL IV PUSH PRN (21:53)
[2017-11-20] VITALS (7 sets, daily range): BP systolic 124–172; BP diastolic 62–83; PULSE 61–92; RESP 18–22; TEMP 96.1–99.3; O2SAT 92–98
[2017-11-20] MEDS: LORazepam 2 MG/ML VIAL IV PUSH PRN (04:53)
[2017-11-20 06:49] LABS: HEMATOCRIT 35.2 % (39.0-51.0); HEMOGLOBIN 11.4 GM/DL (13.0-17.0); MEAN CELL VOLUME 95.5 FL (80.0-100.0); MEAN CORPUSCULAR HEMOGLOBIN 30.9 PG (27.0-34.0); MEAN CORPUSCULAR HGB CONC 32.4 % (32.0-36.0); MEAN PLATELET VOLUME 7.4 FL (7.0-11.0); PLATELET COUNT 263 TH/MM3 (150-450); RED BLOOD COUNT 3.68 MIL/MM3 (4.50-5.90); RED CELL DISTRIBUTION WIDTH 15.1 % (11.6-17.2); WHITE BLOOD COUNT 15.7 TH/MM3 (4.0-11.0)
[2017-11-20 07:11] LABS: BICARBONATE 17.3 MEQ/L (21.0-32.0); CALCIUM 8.1 MG/DL (8.5-10.1); MAGNESIUM 2.5 MG/DL (1.5-2.5)
[2017-11-20] MEDS: INSULIN ASPART SUPPLEMENTAL SCALE SQ SCH ×4 (08:00→20:13)
[2017-11-20] MEDS: INSULIN DETEMIR 100 UNITS/ML VIAL SQ SCH ×2 (08:14→20:14)
[2017-11-20] MEDS: PARoxetine HCL 20 MG TAB PO SCH (08:15)
[2017-11-20] MEDS: THIAMINE HCL 100 MG TAB PO SCH (08:15)
[2017-11-20] MEDS: PRAVASTATIN SOD 10 MG TAB PO SCH (08:15)
[2017-11-20] MEDS: MEMANTINE HCL 10 MG TAB PO SCH ×2 (08:15→20:15)
[2017-11-20] MEDS: SODIUM CHLORIDE 0.9% FLUSH 10 ML FLUSH IV FLUSH SCH ×2 (08:16→20:14)
[2017-11-20] MEDS: SODIUM CHLOR 0.45% 1000 ML INJ 1,000 ML IV SCH ×2 (08:17→09:55)
--- NOTE | 2017-11-20 09:43 | HHI.PR ---
Subjective Remarks The patient was resting comfortably in bed. He wanted to get out of the hospital. He said he had things to do. He said he thinks he came to the hospital because he fell down. He said his brought him here. Objective Vitals Vital Signs Date Time Temp Pulse Resp B/P (MAP) Pulse Ox O2 Delivery O2 Flow Rate FiO2 11/20/17 08:45 97.6 76 18 139/71 (93) 94 11/20/17 04:00 97.4 92 20 172/83 (112) 98 11/20/17 00:00 96.1 73 22 135/62 (86) 92 11/19/17 20:07 72 11/19/17 20:00 96.6 77 22 121/57 (78) 95 11/19/17 20:00 95 Room Air 11/19/17 16:00 98.2 80 19 139/60 (86) 95 11/19/17 12:00 98.3 70 20 125/65 (85) 95 I/O 11/19/17 11/19/17 11/19/17 11/20/17 11/20/17 11/20/17 07:00 15:00 23:00 07:00 15:00 23:00 Intake Total 645 ml 120 ml 580 ml 1136 ml Output Total 75 ml 1200 ml Balance 570 ml 120 ml -620 ml 1136 ml Intake Oral 60 ml 120 ml 480 ml IV Total 585 ml 100 ml 1136 ml Output Urine Total 75 ml 1200 ml # Voids 1 7 # Bowel Movements 0 4 0 Result Diagram: 11/20/17 0635 11/20/17 0635 Imaging Last Impressions Head CT 11/18/17 0000 Signed Impressions: Service Date/Time: Saturday, November 18, 2017 18:09 - CONCLUSION: 1. No acute intracranial abnormality seen. 2. Age related atrophy and suspected small vessel ischemic change in the white matter. 3. Sinus disease. Binh Sosa MD Chest X-Ray 11/18/17 0000 Signed Impressions: Service Date/Time: Saturday, November 18, 2017 20:23 - CONCLUSION: No acute disease. There is elevation of the left hemidiaphragm. Binh Sosa MD Abdomen/Pelvis CT 11/18/17 0000 Signed Impressions: Service Date/Time: Saturday, November 18, 2017 19:53 - CONCLUSION: 1. Status post prostatectomy and either partial or total cystectomy with a postoperative appearance of the urinary bladder. There is a 1.9 cm stone seen within the urinary bladder. 2. There is mild dilatation of the collecting systems bilaterally. No prior studies are available for comparison. 3. Both ureters enter a segment of bowel in the right lower quadrant then empties into this neobladder at the superior right lateral aspect of the bladder. 4. Low density masses in the kidneys bilaterally likely related to cysts although these are nonspecific on this noncontrast CT examination. Scattered colonic diverticula. 5. Small umbilical hernia containing mesenteric fat. 6. Chronic bony change. Binh Sosa MD Objective Remarks GENERAL: No distress. SKIN: Skin tear on the left forearm and the left dorsal aspect of the hand. HEAD: Atraumatic. Normocephalic. EYES: Pupils equal and round. No injection or drainage. ENT: Moist mucous membranes NECK: Trachea midline. CARDIOVASCULAR: Regular rate and rhythm. No murmur appreciated. RESPIRATORY: Clear to auscultation. Breath sounds equal bilaterally. GASTROINTESTINAL: Abdomen soft, distended, nontender. MUSCULOSKELETAL: No obvious deformities. No lower extremity edema. NEUROLOGICAL: Confused. Slightly tremulous. No obvious cranial nerve deficits. Moving all extremities. PSYCHIATRIC: Calm. A/P Assessment and Plan Acute metabolic encephalopathy May be secondary to sepsis and alcohol withdrawal. CT head unremarkable. TSH, B12 and ammonia levels within normal limits. - Continue IV antibiotics. - PT/ OT/ ST. - neuro checks. Sepsis/ UTI UA indicative of infection. GNR growing in urine. Pt developed marked leukocytosis overnight. - continue IV ceftriaxone. - IVFs. - follow urine and blood cultures. Acute renal failure Possibly pre-renal, exacerbated by infection. Appears to have chronic component. Creatinine was 1.4 in 2002. - continue IVFs and avoid nephrotoxins. - follow BMP. Bladder cancer CT abdomen showed: Status post prostatectomy and either partial or total cystectomy with a postoperative appearance of the urinary bladder; There is a 1.9 cm stone seen within the urinary bladder; There is mild dilatation of the collecting systems bilaterally; Both ureters enter a segment of bowel in the right lower quadrant then empties into this neobladder at the superior right lateral aspect of the bladder; Low density masses in the kidneys bilaterally likely related to cysts although these are nonspecific on this noncontrast CT examination. No complaints of dysuria. - P[place]itt if needed. - outpt follow-up. Alcoholic cirrhosis/ withdrawal Drinks whiskey daily. - CIWA protocol. - seizure precautions. - cessation instruction. Tobacco dependence The pt smokes 1 PPD and has no intention of quitting. - cessation instruction. - nebs as needed. Diabetes Relatively well controlled. - insulin sliding scale. Hypertension Blood pressure markedly elevated on admission, normal at this time. - holding home antihypertensives. Resume as appropriate. PPx: Jeffry Rock DO November 20, 2017 09:43
[2017-11-20] MEDS: DEXT 5%-NACL 0.45% 1000 ML INJ 1,000 ML IV SCH (17:47)
[2017-11-20] MEDS: THIAMINE INJ 100 MG in SODIUM CHLORIDE 0.9% INJ 100 ML IV SCH (20:15)
[2017-11-20] MEDS: cefTRIAXone INJ 1,000 MG in SODIUM CHLORIDE 0.9% INJ 100 ML IV SCH (21:35)
[2017-11-21] VITALS: BP 179/88; PULSE 73; RESP 22; TEMP 97.5; O2SAT 92
[2017-11-21] MEDS: THIAMINE INJ 100 MG in SODIUM CHLORIDE 0.9% INJ 100 ML IV SCH ×2 (03:55→11:31)
[2017-11-21] MEDS: DEXT 5%-NACL 0.45% 1000 ML INJ 1,000 ML IV SCH ×2 (03:55→14:00)
[2017-11-21 08:00] VITALS: BP 163/87; PULSE 78; RESP 20; TEMP 96; O2SAT 96
[2017-11-21] MEDS: INSULIN ASPART SUPPLEMENTAL SCALE SQ SCH ×2 (08:06→11:47)
[2017-11-21] MEDS: INSULIN DETEMIR 100 UNITS/ML VIAL SQ SCH (08:07)
[2017-11-21] MEDS: MEMANTINE HCL 10 MG TAB PO SCH (08:09)
[2017-11-21] MEDS: PARoxetine HCL 20 MG TAB PO SCH (08:09)
[2017-11-21 08:10] VITALS: PULSE 69
[2017-11-21] MEDS: PRAVASTATIN SOD 10 MG TAB PO SCH (08:10)
[2017-11-21] MEDS: SODIUM CHLORIDE 0.9% FLUSH 10 ML FLUSH IV FLUSH SCH (08:14)
[2017-11-21] MEDS ORDERED: FOLIC ACID 1 MG TAB PO SCH (09:00)
[2017-11-21] MEDS ORDERED: MULTIVITAMIN TAB PO SCH (09:00)
[2017-11-21] MEDS: NYSTATIN SUSP 500,000 U/5 ML CUP SWISH-SWAL SCH ×2 (11:01→13:13)
[2017-11-21 12:00] VITALS: BP 154/87; PULSE 75; RESP 18; TEMP 97; O2SAT 95
[2017-11-21] MEDS ORDERED: CHLO10CA5 PO (13:11)
[2017-11-21] MEDS ORDERED: CEFU1TAB18 PO (13:11)
[2017-11-21] MEDS ORDERED: VITA250T25 PO (13:11)
--- NOTE | 2017-11-21 13:12 | HHI.DCPOC ---
Discharge Care Plan Diagnosis: (1) Acute renal failure (2) Withdrawal symptoms, alcohol (3) Altered mental status (4) UTI (urinary tract infection) (5) Dehydration Goals to Promote Your Health * To prevent worsening of your condition and complications * To maintain your health at the optimal level Directions to Meet Your Goals Take your medications as prescribed Follow your dietary instruction Follow activity as directed Keep your appointments as scheduled Take your immunizations and boosters as scheduled If your symptoms worsen call your PCP, if no PCP go to Urgent Care Center or Emergency Room Smoking is Dangerous to Your Health. Avoid second hand smoke Call the 24-hour hour crisis hotline for domestic abuse at Jeffry Blackmon DO November 21, 2017 13:11
[2017-11-21] MEDS ORDERED: WALKER WHEELS/F1 MIS (13:13)
--- NOTE | 2017-11-21 13:25 | HHI.DS ---
Discharge Summary Admission Date November 18, 2017 at 21:33 Discharge Date: November 21, 2017 Admitting Diagnosis UTI, AMS, alcohol withdrawal (1) Withdrawal symptoms, alcohol ICD Code: F10.239 - Alcohol dependence with withdrawal, unspecified Diagnosis: Principal Status: Acute (2) Altered mental status ICD Code: R41.82 - Altered mental status, unspecified Diagnosis: Principal Status: Acute (3) UTI (urinary tract infection) ICD Code: N39.0 - Urinary tract infection, site not specified Diagnosis: Principal Status: Acute (4) Acute renal failure ICD Code: N17.9 - Acute kidney failure, unspecified Diagnosis: Principal (5) Dehydration ICD Code: E86.0 - Dehydration Status: Acute Procedures None Brief History - From Admission The patient is a 81-year-old male with a past medical history of alcoholic cirrhosis and dementia who is presenting to the hospital with altered mental status and recent falls. The patient does not know that he is in the hospital and thinks he is at home. He denies any symptoms. He says he is not having any pain with urination. He says he is not having any shortness of breath or pain. He says he has 2 whiskey drinks daily. He says that he smokes 1 pack per day and has no intention of quitting. Per report the patient fell down at home and it was unwitnessed. The patient says he is hungry. He was able to work with physical therapy earlier. Discussed with nursing at the bedside. He has not been requiring Ativan today. CBC/BMP: 11/20/17 0635 11/20/17 0635 Significant Findings Laboratory Tests Test 11/18/17 17:50 11/18/17 19:30 11/18/17 19:40 11/18/17 20:50 Red Blood Count 4.14 MIL/MM3 (4.50-5.90) Neutrophils (%) (Auto) 92.8 % (16.0-70.0) Lymphocytes (%) (Auto) 3.7 % (9.0-44.0) Basophils (%) (Auto) 2.5 % (0.0-2.0) Lymphocytes # (Auto) 0.1 TH/MM3 (1.0-4.8) Blood Urea Nitrogen 30 MG/DL (7-18) Creatinine 1.80 MG/DL (0.60-1.30) Random Glucose 307 MG/DL (74-106) Total Protein 6.1 GM/DL (6.4-8.2) Albumin 2.5 GM/DL (3.4-5.0) Calcium Level 7.4 MG/DL (8.5-10.1) Alkaline Phosphatase 158 U/L (45-117) Aspartate Amino Transf (AST/SGOT) 8 U/L (15-37) Chloride Level 114 MEQ/L (98-107) Carbon Dioxide Level 17.1 MEQ/L (21.0-32.0) Estimat Glomerular Filtration Rate 37 ML/MIN (>89) Protein Corrected Calcium 7.9 MG/DL (8.5-10.1) Blood Gas HCO3 15 mmol/L (22-26) Blood Gas Base Excess -9.9 mmol/L (-2-2) Arterial Blood pH 7.34 (7.380-7.420) Arterial Blood Partial Pressure CO2 28 mmHG (38-42) Lactic Acid Level 3.7 mmol/L (0.4-2.0) Urine Turbidity CLOUDY (CLEAR) Urine pH GREATER/EQUAL 9.0 (5.0-8.5) Urine Protein 100 mg/dL (NEG-TRACE) Urine Glucose (UA) 100 mg/dL (NEG) Urine Occult Blood SMALL (NEG) Urine Nitrite POS (NEG) Urine Leukocyte Esterase LARGE (NEG) Urine WBC 6-8 /hpf (0-5) Urine Triple Phosphate Crystals FEW /hpf (NONE) Urine Bacteria MANY /hpf (NONE) Test 11/19/17 06:28 11/19/17 14:06 11/20/17 06:35 White Blood Count 26.2 TH/MM3 (4.0-11.0) 15.7 TH/MM3 (4.0-11.0) Red Blood Count 3.95 MIL/MM3 (4.50-5.90) 3.68 MIL/MM3 (4.50-5.90) Hemoglobin 12.5 GM/DL (13.0-17.0) 11.4 GM/DL (13.0-17.0) Hematocrit 38.0 % (39.0-51.0) 35.2 % (39.0-51.0) Neutrophils (%) (Auto) 89.0 % (16.0-70.0) Lymphocytes (%) (Auto) 5.6 % (9.0-44.0) Neutrophils # (Auto) 23.2 TH/MM3 (1.8-7.7) Monocytes # (Auto) 1.3 TH/MM3 (0-0.9) Neutrophils % (Manual) 73 % (16-70) Band Neutrophils % 15 % (0-6) Lymphocytes % 6 % (9-44) Neutrophils # (Manual) 23.6 TH/MM3 (1.8-7.7) Metamyelocytes 2 % (0-1) Blood Urea Nitrogen 40 MG/DL (7-18) 33 MG/DL (7-18) Creatinine 2.30 MG/DL (0.60-1.30) 2.00 MG/DL (0.60-1.30) Random Glucose 197 MG/DL (74-106) 137 MG/DL (74-106) Total Protein 6.1 GM/DL (6.4-8.2) Albumin 2.3 GM/DL (3.4-5.0) Calcium Level 8.2 MG/DL (8.5-10.1) 8.1 MG/DL (8.5-10.1) Alkaline Phosphatase 133 U/L (45-117) Aspartate Amino Transf (AST/SGOT) 9 U/L (15-37) Chloride Level 119 MEQ/L (98-107) 118 MEQ/L (98-107) Carbon Dioxide Level 17.5 MEQ/L (21.0-32.0) 17.3 MEQ/L (21.0-32.0) Estimat Glomerular Filtration Rate 28 ML/MIN (>89) 32 ML/MIN (>89) Imaging Last Impressions Head CT 11/18/17 0000 Signed Impressions: Service Date/Time: Saturday, November 18, 2017 18:09 - CONCLUSION: 1. No acute intracranial abnormality seen. 2. Age related atrophy and suspected small vessel ischemic change in the white matter. 3. Sinus disease. Binh Sosa MD Chest X-Ray 11/18/17 0000 Signed Impressions: Service Date/Time: Saturday, November 18, 2017 20:23 - CONCLUSION: No acute disease. There is elevation of the left hemidiaphragm. Binh Sosa MD Abdomen/Pelvis CT 11/18/17 0000 Signed Impressions: Service Date/Time: Saturday, November 18, 2017 19:53 - CONCLUSION: 1. Status post prostatectomy and either partial or total cystectomy with a postoperative appearance of the urinary bladder. There is a 1.9 cm stone seen within the urinary bladder. 2. There is mild dilatation of the collecting systems bilaterally. No prior studies are available for comparison. 3. Both ureters enter a segment of bowel in the right lower quadrant then empties into this neobladder at the superior right lateral aspect of the bladder. 4. Low density masses in the kidneys bilaterally likely related to cysts although these are nonspecific on this noncontrast CT examination. Scattered colonic diverticula. 5. Small umbilical hernia containing mesenteric fat. 6. Chronic bony change. Binh Sosa MD PE at Discharge GENERAL: No distress. SKIN: Skin tear on the left forearm and the left dorsal aspect of the hand. HEAD: Atraumatic. Normocephalic. EYES: Pupils equal and round. No injection or drainage. ENT: Moist mucous membranes NECK: Trachea midline. CARDIOVASCULAR: Regular rate and rhythm. No murmur appreciated. RESPIRATORY: Clear to auscultation. Breath sounds equal bilaterally. GASTROINTESTINAL: Abdomen soft, distended, nontender. MUSCULOSKELETAL: No obvious deformities. No lower extremity edema. NEUROLOGICAL: Confused. Slightly tremulous. No obvious cranial nerve deficits. Moving all extremities. PSYCHIATRIC: Calm. Pt update on day of discharge The patient was feeling well. He wanted to go home. His family was at the bedside and were encouraging alcohol cessation. They did not want home health care. Discussed with nursing and physical therapy. Hospital Course Acute metabolic encephalopathy Has underlying dementia. CT head unremarkable. TSH, B12 and ammonia levels within normal limits. He was continued on antibiotics. He worked with PT/ OT/ ST. He was placed on neuro checks. He was started on IV thiamine. His symptoms improved. He will follow up with his PCP. Sepsis/ UTI UA indicative of infection. Urine culture grew Providencia rettgeri. He was continued on IV ceftriaxone and received IVFs. Blood cultures were negative. He will complete a course of Ceftin. Alcoholic cirrhosis/ withdrawal Drinks whiskey daily. He was placed on CIWA protocol and seizure precautions.He received cessation instruction. He was started on IV thiamine. He will continue PO thiamine. He will receive Librium upon discharge. Acute renal failure Appears to have a chronic component as his creatinine was 1.4 in 2002. We continued IVFs and avoided nephrotoxins. Will hold ARB at discharge. He will have a repeat BMP in 3-[address] abdomen showed: Status post prostatectomy and either partial or total cystectomy with a postoperative appearance of the urinary bladder; There is a 1.9 cm stone seen within the urinary bladder; There is mild dilatation of the collecting systems bilaterally; Both ureters enter a segment of bowel in the right lower quadrant then empties into this neobladder at the superior right lateral aspect of the bladder; Low density masses in the kidneys bilaterally likely related to cysts although these are nonspecific on this noncontrast CT examination. No complaints of dysuria. He will have outpt follow-up with urology. Tobacco dependence The pt smokes 1 PPD and has no intention of quitting. He received cessation instruction. Hypertension Blood pressure markedly elevated on admission, exacerbated by withdrawal. Will change antihypertensives to amlodipine. Outpt follow-up with PCP. Pt Condition on Discharge: Stable Discharge Disposition: Discharge Home Discharge Time: > 30 minutes Discharge Instructions DIET: Follow Instructions for: Heart Healthy Diet Activities you can perform: Weight Bearing as Meredith Follow up Referrals: Appointment for Follow Up PCP Follow-up - 1 Week PCP Follow-up Urology - 1 Week New Medications: Amlodipine (Amlodipine) 5 Mg Tab 5 MG PO DAILY for Blood Pressure Management, #30 TAB 0 Refills Cefuroxime (Ceftin) 250 Mg Tab 250 MG PO BID for Infection, #12 TAB Chlordiazepoxide HCl (Chlordiazepoxide HCl) 10 Mg Capsule 10 MG PO BID for WITHDRAWAL, #8 CAP Thiamine (Vitamin B-1) 250 Mg Tab 250 MG PO DAILY for Nutritional Supplement, #30 TAB 0 Refills Walker with Front Wheels (Walker with Front Wheels) 1 Mis Mis EA .XX DIRECTED, #1 0 Refills Continued Medications: Insulin Glargine Inj (Lantus Inj) 1,000 Unit/10 Ml Vial 34 UNITS SQ DAILY for Blood Sugar Management, VIAL 0 Refills Lovastatin (Lovastatin) 10 Mg Tab 10 MG PO DAILY for Cholesterol Management, #30 TAB 0 Refills Memantine (Memantine) 10 Mg Tab 10 MG PO BID for Alzheimer's Dementia, TAB 0 Refills Paroxetine (Paroxetine) 20 Mg Tab 20 MG PO DAILY, #30 TAB 0 Refills Discontinued Medications: Losartan (Losartan) 25 Mg Tab 12.5 MG PO DAILY for Blood Pressure Management, #15 TAB 0 Refills Tramadol (Tramadol) 50 Mg Tab 100 MG PO Q4-6H PRN for PAIN, TAB 0 Refills Jeffry Blackmon DO November 21, 2017 13:25
[2017-11-21] MEDS ORDERED: AMLO5TAB2 PO (13:26)
[2017-11-21 13:34] LABS: AUTOMATED NEUTROPHIL # 8.1 TH/MM3 (1.8-7.7); BASOPHIL % 0.4 % (0.0-2.0); EOSINOPHIL # 0.2 TH/MM3 (0-0.4); EOSINOPHIL % 1.9 % (0.0-4.0); HEMATOCRIT 38.7 % (39.0-51.0); HEMOGLOBIN 12.8 GM/DL (13.0-17.0); LYMPH % 11.2 % (9.0-44.0); LYMPHOCYTE # 1.1 TH/MM3 (1.0-4.8); MEAN CELL VOLUME 95.3 FL (80.0-100.0); MEAN CORPUSCULAR HEMOGLOBIN 31.5 PG (27.0-34.0); MEAN PLATELET VOLUME 7.3 FL (7.0-11.0); MONO % 5.9 % (0.0-8.0); MONOCYTE # 0.6 TH/MM3 (0-0.9); NEUT % 80.6 % (16.0-70.0); PLATELET COUNT 290 TH/MM3 (150-450); RED BLOOD COUNT 4.06 MIL/MM3 (4.50-5.90); RED CELL DISTRIBUTION WIDTH 14.3 % (11.6-17.2)
[2017-11-21 13:44] LABS: CALCIUM 8.3 MG/DL (8.5-10.1)
[2017-11-21 13:45] LABS: BICARBONATE 19.2 MEQ/L (21.0-32.0)
[2017-11-21 13:48] LABS: CREATININE 1.7 MG/DL (0.60-1.30)
[2017-11-21] MEDS ORDERED: THIAMINE INJ 100 MG in SODIUM CHLORIDE 0.9% INJ 100 ML IV ONE (14:00)
== END 2017-11-21 16:06 | disposition home or self-care (01) | DRG 871 ==
LOC: PHED 17:38 → PHEDA 21:33 → PH3B 23:23
PROVIDERS: ADMIT Hospitalist; ATTEND Hospitalist
DX: A41.9 Sepsis, unspecified organism (principal); G93.41 Metabolic encephalopathy; N17.9 Acute kidney failure, unspecified; N30.00 Acute cystitis without hematuria; F10.230 Alcohol dependence with withdrawal, uncomplicated; E86.0 Dehydration; K70.30 Alcoholic cirrhosis of liver without ascites; I10 Essential (primary) hypertension; F17.210 Nicotine dependence, cigarettes, uncomplicated; F03.90 Unspecified dementia, unspecified severity, without behavioral disturbance, psychotic disturbance, mood disturbance, and anxiety; W19.XXXA Unspecified fall, initial encounter; Y92.009 Unspecified place in unspecified non-institutional (private) residence as the place of occurrence of the external cause; Z85.51 Personal history of malignant neoplasm of bladder; E11.9 Type 2 diabetes mellitus without complications; Z79.4 Long term (current) use of insulin
CPT/HCPCS: 36600; 70450; 71045; 74176; 80048; 80053; 81001; 82140; 82607; 82805; 82948; 83605; 83690; 83735; 84443; 85007; 85025; 85027; 85610; 87040; 87077; 87086; 87186; 93005; 96361; 96374; 96376; J0696; J1815; J2060; J3411; J7030; J7040

== ENCOUNTER 2017-11-27 12:15 | Observation (INO) | END 2017-11-29 13:55 | disposition home or self-care (01) | DX: R23.0 Cyanosis (principal); I12.9 Hypertensive chronic kidney disease with stage 1 through stage 4 chronic kidney disease, or unspecified chronic kidney disease; E11.22 Type 2 diabetes mellitus with diabetic chronic kidney disease; N18.3 Chronic kidney disease, stage 3 (moderate); E11.51 Type 2 diabetes mellitus with diabetic peripheral angiopathy without gangrene; J44.9 Chronic obstructive pulmonary disease, unspecified; K74.60 Unspecified cirrhosis of liver; I77.1 Stricture of artery; G30.9 Alzheimer's disease, unspecified; F02.80 Dementia in other diseases classified elsewhere, unspecified severity, without behavioral disturbance, psychotic disturbance, mood disturbance, and anxiety; F41.9 Anxiety disorder, unspecified; F32.9 Major depressive disorder, single episode, unspecified; F17.200 Nicotine dependence, unspecified, uncomplicated; Z79.4 Long term (current) use of insulin; Z85.51 Personal history of malignant neoplasm of bladder | CPT/HCPCS: 73130; 73206; 80048; 80061; 82948; 83605; 85007; 85027; 85610; 85730; 93971; 96360; 96361; 96372; 97162; 99285; G0378; G8987; G8988; J1650; J1815; J7030; J7120; Q9967 ==

== ENCOUNTER 2017-12-10 11:14 | Observation (INO) | payer MEDICARE, OTHER ==
[~2017-12-10] VITALS: Ht 182.9 cm; Wt 91.6 kg
[~2017-12-10 11:14] MED LIST changes: +AMLO5TAB2 PO; +ASPI-183 PO; -ASPI81TA82 PO; +CEFU1TAB18 PO; -CELE200 PO; -FLUO20TA20 PO; +LANTUS2P SQ; -LORTA10 PO; +LOVA10TA PO; -LOVA20TA PO; +MEMA1TAB2 PO; -METO50TA PO; +PARO20TA2 PO; +VITA250T25 PO; +WALKER WHEELS/F1 MIS
[2017-12-10 11:22] VITALS: BP 122/60; PULSE 68; RESP 18; TEMP 97.7; O2SAT 97
--- NOTE | 2017-12-10 11:33 | PD ---
HPI Chief Complaint: General Weakness Time Seen by Provider: 11:32 Travel History International Travel<30 days: No Contact w/Intl Traveler<30days: No Traveled to known affect area: No History of Present Illness HPI 82-year-old male came to the emergency room brought by his daughter and with history of generalized weakness is progressively worsened over past 1 month especially in past 2 days. They have noticed that while walking he has been very shaky and unsteady. Yesterday and today his core body temperature was 95. The daughter called primary care physician and was asked to bring the patient here. Here his temperature is 97.7. Upon asking patient says he feels good. Daughter says he really does not want to be in the hospital but they were concerned. No recent history of fall. One month ago he was diagnosed with a UTI. His appetite has been good. No history of nausea or vomiting. Patient has history of diabetes. His bedside blood glucose was 155. Patient does not appear to be in any significant distress. Rest of his vital signs are within normal limits. [facility] Past Medical History Narrative Medical List of his past medical, surgical, social and family history is reviewed from the nursing note Arthritis: No Asthma: No Autoimmune Disease: No Anxiety: No Depression: No Heart Rhythm Problems: No Cancer: Yes (bladder 20 years ago ) Cardiovascular Problems: No High Cholesterol: No Chemotherapy: Yes (20 years ago ) Chest Pain: No Congestive Heart Failure: No Cirrhosis: Yes COPD: Yes Cerebrovascular Accident: No Dementia: Yes Diabetes: Yes Diminished Hearing: No Endocrine: Yes Gastrointestinal Disorders: Yes (bladder cancer) GERD: No Genitourinary: Yes Hiatal Hernia: No Hypertension: Yes Immune Disorder: No Kidney Stones: No Musculoskeletal: Yes Neurologic: No Psychiatric: Yes Reproductive: No Respiratory: No Migraines: No Radiation Therapy: No Renal Failure: No Seizures: No Sleep Apnea: No Thyroid Disease: No Ulcer: No Past Surgical History Abdominal Surgery: Yes (bladder sx) Cardiac Surgery: No Ear Surgery: No Endocrine Surgery: No Eye Surgery: No Genitourinary Surgery: Yes (bladder sx) Gynecologic Surgery: No Oral Surgery: Yes (teethe removal) Thoracic Surgery: No Other Surgery: Yes (bladder sx ) Social History Alcohol Use: Yes (2 ounces liquor/day) Tobacco Use: Yes (1/2 PPD) Substance Use: No Allergies-Medications (Allergen,Severity, Reaction): Coded Allergies: No Known Allergies (Verified Allergy, Unknown, 12/10/17) Comments List of his allergies reviewed from the nursing note. Reported Meds & Prescriptions Reported Meds & Active Scripts Active Aspirin 325 Mg Tab 325 Mg PO DAILY Amlodipine (Amlodipine Besylate) 5 Mg Tab 5 Mg PO DAILY Walker with Front Wheels (Device) 1 Mis Mis Ea .XX DIRECTED Vitamin B-1 (Thiamine HCl) 250 Mg Tab 250 Mg PO DAILY Reported Paroxetine (Paroxetine HCl) 20 Mg Tab 20 Mg PO DAILY Lovastatin 10 Mg Tab 10 Mg PO DAILY Memantine 10 Mg Tab 10 Mg PO BID Narrative Medication List of his home medications reviewed from the nursing note Review of Systems Except as stated in HPI: all other systems reviewed are Neg Physical Exam Narrative GENERAL: Awake, alert, elderly, frail, no obvious distress SKIN: Focused skin assessment warm/dry. HEAD: Atraumatic. Normocephalic. EYES: Pupils equal and round. No scleral icterus. No injection or drainage. ENT: No nasal bleeding or discharge. Mucous membranes pink and moist. NECK: Trachea midline. No JVD. CARDIOVASCULAR: Regular rate and rhythm. No murmur appreciated. RESPIRATORY: No accessory muscle use. Clear to auscultation. Breath sounds equal bilaterally. GASTROINTESTINAL: Abdomen soft, non-tender, nondistended. Hepatic and splenic margins not palpable. MUSCULOSKELETAL: No obvious deformities. No clubbing. No cyanosis. No edema. NEUROLOGICAL: Awake and alert. No obvious cranial nerve deficits. Motor grossly within normal limits. Normal speech. PSYCHIATRIC: Appropriate mood and affect; insight and judgment normal. Data Data Last Documented VS Vital Signs Date Time Temp Pulse Resp B/P (MAP) Pulse Ox O2 Delivery O2 Flow Rate FiO2 12/10/17 14:12 62 16 144/70 (94) 94 12/10/17 12:07 Room Air 12/10/17 11:22 97.7 Orders Orders Electrocardiogram (12/10/17 11:43) Complete Blood Count With Diff (12/10/17 11:43) Comprehensive Metabolic Panel (12/10/17 11:43) Magnesium (Mg) (12/10/17 11:43) Prothrombin Time / Inr (Pt) (12/10/17 11:43) Troponin I (12/10/17 11:43) Ecg Monitoring (12/10/17 11:43) Bilateral Bp Monitoring (12/10/17 11:43) Iv Access Insert/Monitor (12/10/17 11:43) Oximetry (12/10/17 11:43) Oxygen Administration (12/10/17 11:43) Sodium Chloride 0.9% Flush (Ns Flush) (12/10/17 11:45) Chest, Pa & Lat (12/10/17 11:43) Urinalysis - C+S If Indicated (12/10/17 11:43) Blood Glucose (12/10/17 11:43) I-Stat Profile (12/10/17 12:00) ^ Straight Catheter (12/10/17 12:52) Urine Culture (12/10/17 12:55) Ceftriaxone Inj (Rocephin Inj) (12/10/17 13:30) Blood Culture (12/10/17 13:27) Sodium Chlorid 0.9% 500 Ml Inj (Ns 500 M (12/10/17 14:00) Lactic Acid (12/10/17 14:13) Sodium Chlorid 0.9% 500 Ml Inj (Ns 500 M (12/10/17 14:15) Admit Order (Ed Use Only) (12/10/17 14:19) Labs Laboratory Tests Test 12/10/17 12:00 12/10/17 12:55 12/10/17 14:20 White Blood Count 8.3 TH/MM3 Red Blood Count 4.26 MIL/MM3 Hemoglobin 13.4 GM/DL Bedside Hemoglobin G/DL Hematocrit 40.8 % Bedside Hematocrit % Mean Corpuscular Volume 95.8 FL Mean Corpuscular Hemoglobin 31.4 PG Mean Corpuscular Hemoglobin Concent 32.8 % Red Cell Distribution Width 14.8 % Platelet Count 383 TH/MM3 Mean Platelet Volume 7.2 FL Neutrophils (%) (Auto) 76.2 % Lymphocytes (%) (Auto) 16.3 % Monocytes (%) (Auto) 3.1 % Eosinophils (%) (Auto) 3.7 % Basophils (%) (Auto) 0.7 % Neutrophils # (Auto) 6.2 TH/MM3 Lymphocytes # (Auto) 1.4 TH/MM3 Monocytes # (Auto) 0.3 TH/MM3 Eosinophils # (Auto) 0.3 TH/MM3 Basophils # (Auto) 0.1 TH/MM3 CBC Comment DIFF FINAL Differential Comment Prothrombin Time 9.4 SEC Prothromb Time International Ratio 0.9 RATIO Bedside Sodium 142 MMOL/L Blood Urea Nitrogen 25 MG/DL Creatinine 2.06 MG/DL Random Glucose 188 MG/DL Total Protein 7.0 GM/DL Albumin 2.9 GM/DL Calcium Level 8.0 MG/DL Magnesium Level 2.3 MG/DL Alkaline Phosphatase 175 U/L Aspartate Amino Transf (AST/SGOT) 20 U/L Alanine Aminotransferase (ALT/SGPT) 27 U/L Total Bilirubin 0.2 MG/DL Sodium Level 143 MEQ/L Potassium Level 4.7 MEQ/L Chloride Level 114 MEQ/L Carbon Dioxide Level 17.3 MEQ/L Bedside Potassium 4.8 MMOL/L Bedside Chloride 117 MMOL/L Anion Gap 12 MEQ/L Bedside Blood Urea Nitrogen 27 MG/DL Bedside Creatinine 2.0 MG/DL Estimat Glomerular Filtration Rate 31 ML/MIN Bedside Glucose 191 MG/DL Troponin I LESS THAN 0.02 NG/ML Urine Collection Type CLEAN CATCH Urine Color YELLOW Urine Turbidity CLEAR Urine pH 7.0 Urine Specific [place] 1.020 Urine Protein TRACE mg/dL Urine Glucose (UA) NEG mg/dL Urine Ketones NEG mg/dL Urine Occult Blood TRACE Urine Nitrite POS Urine Bilirubin NEG Urine Urobilinogen 0.2 MG/DL Urine Leukocyte Esterase SMALL Urine RBC 0-3 /hpf Urine WBC 25-49 /hpf Urine Squamous Epithelial Cells 0-5 /hpf Urine Renal Epithelial Cells 6-8 /hpf Microscopic Urinalysis Comment CULTURE INDICATED Lactic Acid Level 0.8 mmol/L MDM Medical Decision Making Medical Screen Exam Complete: Yes Emergency Medical Condition: Yes Medical Record Reviewed: Yes Interpretation(s) Twelve-lead EKG was reviewed by me. Normal sinus rhythm, left axis deviation, old inferior OK, nonspecific ST-T wave changes, first-degree AV block. Heart rate of 63 bpm Differential Diagnosis Electrolyte abnormality, ACS, non-STEMI, UTI, pneumonia Narrative Course 12:39 PM awaiting for the blood test result and UA. Chest x-ray is within normal limits. 2:17 PM blood test results are back and patient has elevated BUN and creatinine and low bicarb. UA is positive for UTI. This is in spite of being on Ceftin which is sensitive to the bacteria that grew in the urine 3 weeks ago. I have ordered IV fluid bolus and a lactic acid. At this point I would like to admit the patient for UTI and outpatient treatment failure. Procedures EKG Prior to Arrival: No Diagnosis Primary Impression: Generalized weakness Additional Impressions: UTI (urinary tract infection) Qualified Codes: N39.0 - Urinary tract infection, site not specified Failure of outpatient treatment Admitting Information Admitting Physician Requests: Admit Scripts Insulin Glargine Inj (Lantus Inj) 1,000 Unit/10 Ml Vial 25 UNITS SQ DAILY for Blood Sugar Management for 30 Days, #3 VIAL 0 Refills Prov: Keara Lozano 12/11/17 Ciprofloxacin (Ciprofloxacin) 500 Mg Tab 500 MG PO BID for Infection for 12 Days, #24 TAB 0 Refills Prov: Keara Lozano 12/11/17 Nura Weber MD December 10, 2017 11:33
[2017-12-10] MEDS ORDERED: SODIUM CHLORIDE 0.9% FLUSH 10 ML FLUSH IVF PRN (11:45)
[2017-12-10 12:07] VITALS: O2SAT 97
[2017-12-10 12:10] LABS: AUTOMATED NEUTROPHIL # 6.2 TH/MM3 (1.8-7.7); BASOPHIL # 0.1 TH/MM3 (0-0.2); BASOPHIL % 0.7 % (0.0-2.0); EOSINOPHIL # 0.3 TH/MM3 (0-0.4); EOSINOPHIL % 3.7 % (0.0-4.0); HEMATOCRIT 40.8 % (39.0-51.0); HEMOGLOBIN 13.4 GM/DL (13.0-17.0); LYMPH % 16.3 % (9.0-44.0); LYMPHOCYTE # 1.4 TH/MM3 (1.0-4.8); MEAN CELL VOLUME 95.8 FL (80.0-100.0); MEAN CORPUSCULAR HEMOGLOBIN 31.4 PG (27.0-34.0); MEAN CORPUSCULAR HGB CONC 32.8 % (32.0-36.0); MEAN PLATELET VOLUME 7.2 FL (7.0-11.0); MONO % 3.1 % (0.0-8.0); MONOCYTE # 0.3 TH/MM3 (0-0.9); NEUT % 76.2 % (16.0-70.0); PLATELET COUNT 383 TH/MM3 (150-450); RED BLOOD COUNT 4.26 MIL/MM3 (4.50-5.90); RED CELL DISTRIBUTION WIDTH 14.8 % (11.6-17.2); WHITE BLOOD COUNT 8.3 TH/MM3 (4.0-11.0)
[2017-12-10 12:27] LABS: INTERNATIONAL NORMALIZED RATIO 0.9 RATIO; PROTHROMBIN TIME - PATIENT 9.4 SEC (9.8-11.6)
--- NOTE | 2017-12-10 12:32 | RADRPT ---
EXAM DATE: 12/10/2017 12:18 PM EDT AGE/SEX: 82 years / Male INDICATIONS: Chest pain CLINICAL DATA: This is the patient's initial encounter. Patient reports that signs and symptoms have been present for 1 day and indicates a pain score of 4/10. MEDICAL/SURGICAL HISTORY: Chronic obstructive pulmonary disease. None. COMPARISON: No prior exams available for comparison. FINDINGS: No focal consolidation or significant effusion. Tortuous aorta. Minimal basilar atelectasis. No pneum othorax. CONCLUSION: Minimal basilar atelectasis. No pneumothorax. Electronically signed by: Preet Luna MD 12/10/2017 12:31 PM EDT
[2017-12-10 13:09] LABS: BILIRUBIN, URINE NEG (NEG); BLOOD, URINE TRACE (NEG); GLUCOSE,URINE NEG (NEG); KETONE, URINE NEG (NEG); NITRITE,URINE POS (NEG); URINE COLOR YELLOW (YELLW/STRAW); URINE LEUKOCYTE ESTERASE SMALL (NEG)
[2017-12-10 13:22] LABS: RBC, URINE 0-3 /hpf (0-3); SQUAMOUS EPITHELIAL CELL URINE 0-5 /hpf (0-5)
[2017-12-10] MEDS ORDERED: cefTRIAXone INJ 1,000 MG in SODIUM CHLORIDE 0.9% INJ 100 ML IV ONE (13:30)
--- NOTE | 2017-12-10 13:48 | EKG ---
Date Performed: 12/10/2017 Time Performed: 11:51:45 PTAGE: 82 years EKG: Sinus rhythm WITH FIRST DEGREE AV BLOCK BORDERLINE LEFT AXIS DEVIATION LOW QRS VOLTAGE IN PRECORDIAL LEADS NONSPE CIFIC T-WAVE ABNORMALITY ABNORMAL ECG PREVIOUS TRACING : 11/18/2017 19.25 DOCTOR: Olu Ohara Interpretating Date/Time 12/10/2017 13:48:03
[2017-12-10 13:50] LABS: ALBUMIN 2.9 GM/DL (3.4-5.0); ALT (GPT) 27 U/L (12-78); AST (GOT) 20 U/L (15-37); BICARBONATE 17.3 MEQ/L (21.0-32.0); BLOOD UREA NITROGEN 25 MG/DL (7-18); CHLORIDE 114 MEQ/L (98-107); CREATININE 2.06 MG/DL (0.60-1.30); GLOMERULAR FILTRATION RATE 31 ML/MIN (>89); GLUCOSE,RANDOM 188 MG/DL (74-106); MAGNESIUM 2.3 MG/DL (1.5-2.5); SODIUM (NA) 143 MEQ/L (136-145)
[2017-12-10 13:53] LABS: ALKALINE PHOSPHATASE 175 U/L (45-117); TOTAL BILIRUBIN ADULT 0.2 MG/DL (0.2-1.0); TROPONIN I LESS THAN 0.02 NG/ML (0.02-0.05)
[2017-12-10] MEDS ORDERED: SODIUM CHLORID 0.9% 500 ML INJ 500 ML IV ONE ×2 (14:00→14:15)
[2017-12-10 14:12] VITALS: BP 144/70; PULSE 62; RESP 16; O2SAT 94
[2017-12-10] MEDS ORDERED: ONDANSETRON HCL 4 MG/2 ML VIAL IVP PRN (14:45)
[2017-12-10] MEDS ORDERED: ACETAMINOPHEN 325 MG TAB PO PRN (14:45)
[2017-12-10] MEDS ORDERED: MAGNESIUM HYDROXIDE SUSP 30 ML CUP PO PRN (14:45)
[2017-12-10] MEDS ORDERED: NALOXONE HCL 0.4 MG/ML AMP IV PUSH PRN (14:45)
[2017-12-10] MEDS ORDERED: SODIUM CHLORIDE 0.9% FLUSH 10 ML FLUSH IV FLUSH PRN (14:45)
[2017-12-10] MEDS ORDERED: RESP: ALBUTEROL 2.5 MG/IPRATROPIUM 0.5 MG NEB (PRN) NEB (14:45)
--- NOTE | 2017-12-10 14:48 | HHI.HP ---
HPI Service [facility] Hospitalists Primary Care Physician Anirudh Antoine MD Admission Diagnosis UTI, generalized weakness, outpatient treatment failure Diagnoses: (1) UTI (urinary tract infection) (2) Generalized weakness (3) Acute renal failure superimposed on stage 2 chronic kidney disease (4) DM2 (diabetes mellitus, type 2) (5) Dementia Chief Complaint: Checked temperature at home that was low Travel History International Travel<30 Days: No Contact w/Intl Traveler <30 Da: No Traveled to Known Affected Are: No History of Present Illness 82-year-old male with dementia, hypertension, type 2 diabetes and recently discharged from [facility] November 29, 2017 secondary to cyanotic finger, was brought by family member for evaluation of worsening generalized weakness and low body temperature which according to the was 94 at home. Patient however denies any chills, diaphoresis, upper respiratory infection. Patient's vitals on admission were stable including temperature of 97.7. However, patient was found to have abnormal UA. He was treated November 18, 2017 for sepsis and UTI and completed therapy with antibiotic. Patient has a history of diabetes type 2 for which he is on Lantus 34 units daily, however for his 's account he tends to have low blood glucose without any symptoms. Patient has no other complaints Review of Systems Except as stated in HPI: all other systems reviewed are Neg Past Family Social History Past Medical History Bladder cancer Alcoholic cirrhosis Dementia Diabetes Hypertension Past Surgical History Bladder surgery Back surgery Reported Medications Paroxetine (Paroxetine HCl) 20 Mg Tab 20 Mg PO DAILY Lovastatin 10 Mg Tab 10 Mg PO DAILY Memantine 10 Mg Tab 10 Mg PO BID Lantus Inj (Insulin Glargine) 1,000 Unit/10 Ml Vial 34 Units SQ DAILY Allergies: Coded Allergies: No Known Allergies (Verified Allergy, Unknown, 12/10/17) Family History Hypertension Social History Alcohol Use: Yes (2 ounces liquor/day) Tobacco Use: Yes (1/2 PPD) Substance Use: No Physical Exam Vital Signs Vital Signs Date Time Temp Pulse Resp B/P (MAP) Pulse Ox O2 Delivery O2 Flow Rate FiO2 12/10/17 14:12 62 16 144/70 (94) 94 12/10/17 12:07 97 Room Air 12/10/17 12:07 97 12/10/17 11:22 97.7 68 18 122/60 (80) 97 Physical Exam GENERAL: This is a well-nourished, well-developed patient, in no apparent distress. SKIN: No rashes, ecchymoses or lesions. Cool and dry. HEAD: Atraumatic. Normocephalic. No temporal or scalp tenderness. EYES: Pupils equal round and reactive. Extraocular motions intact. No scleral icterus. No injection or drainage. ENT: Nose without bleeding, purulent drainage or septal hematoma. Throat without erythema, tonsillar hypertrophy or exudate. Uvula midline. Airway patent. NECK: Trachea midline. No JVD or lymphadenopathy. Supple, nontender, no meningeal signs. CARDIOVASCULAR: Regular rate and rhythm without murmurs, gallops, or rubs. RESPIRATORY: Clear to auscultation. Breath sounds equal bilaterally. No wheezes , rales, or rhonchi. GASTROINTESTINAL: Abdomen soft, non-tender, nondistended. No hepato-splenomegaly , or palpable masses. No guarding. MUSCULOSKELETAL: Extremities without clubbing, cyanosis, or edema. No joint tenderness, effusion, or edema noted. No calf tenderness. Negative Homans sign bilaterally. NEUROLOGICAL: Awake and alert. Cranial nerves II through XII intact. Motor and sensory grossly within normal limits. Five out of 5 muscle strength in all muscle groups. Normal speech. Laboratory Laboratory Tests Test 12/10/17 12:00 12/10/17 12:55 12/10/17 14:20 White Blood Count 8.3 Red Blood Count 4.26 Hemoglobin 13.4 Bedside Hemoglobin Hematocrit 40.8 Bedside Hematocrit Mean Corpuscular Volume 95.8 Mean Corpuscular Hemoglobin 31.4 Mean Corpuscular Hemoglobin Concent 32.8 Red Cell Distribution Width 14.8 Platelet Count 383 Mean Platelet Volume 7.2 Neutrophils (%) (Auto) 76.2 Lymphocytes (%) (Auto) 16.3 Monocytes (%) (Auto) 3.1 Eosinophils (%) (Auto) 3.7 Basophils (%) (Auto) 0.7 Neutrophils # (Auto) 6.2 Lymphocytes # (Auto) 1.4 Monocytes # (Auto) 0.3 Eosinophils # (Auto) 0.3 Basophils # (Auto) 0.1 CBC Comment DIFF FINAL Differential Comment Prothrombin Time 9.4 Prothromb Time International Ratio 0.9 Bedside Sodium 142 Blood Urea Nitrogen 25 Creatinine 2.06 Random Glucose 188 Total Protein 7.0 Albumin 2.9 Calcium Level 8.0 Magnesium Level 2.3 Alkaline Phosphatase 175 Aspartate Amino Transf (AST/SGOT) 20 Alanine Aminotransferase (ALT/SGPT) 27 Total Bilirubin 0.2 Sodium Level 143 Potassium Level 4.7 Chloride Level 114 Carbon Dioxide Level 17.3 Bedside Potassium 4.8 Bedside Chloride 117 Anion Gap 12 Bedside Blood Urea Nitrogen 27 Bedside Creatinine 2.0 Estimat Glomerular Filtration Rate 31 Bedside Glucose 191 Troponin I LESS THAN 0.02 Urine Collection Type CLEAN CATCH Urine Color YELLOW Urine Turbidity CLEAR Urine pH 7.0 Urine Specific [place] 1.020 Urine Protein TRACE Urine Glucose (UA) NEG Urine Ketones NEG Urine Occult Blood TRACE Urine Nitrite POS Urine Bilirubin NEG Urine Urobilinogen 0.2 Urine Leukocyte Esterase SMALL Urine RBC 0-3 Urine WBC 25-49 Urine Squamous Epithelial Cells 0-5 Urine Renal Epithelial Cells 6-8 Microscopic Urinalysis Comment CULTURE INDICATED Lactic Acid Level 0.8 Date/Time Source Procedure Growth Status 12/10/17 13:40 Blood Peripheral Aerobic Blood Culture Pending Received 12/10/17 13:40 Blood Peripheral Anaerobic Blood Culture Pending Received 12/10/17 12:55 Urine Clean Catch Urine Culture Pending Received Result Diagram: 12/10/17 1200 12/10/17 1200 Imaging Last Impressions Chest X-Ray 12/10/17 1143 Signed Impressions: CONCLUSION: Minimal basilar atelectasis. No pneumothorax. Septic Shock Reassessment Septic shock perfusion: reassessment completed Caprini VTE Risk Assessment Caprini VTE Risk Assessment: Mod/High Risk (score >= 2) Caprini Risk Assessment Model Point Value = 1 Point Value = 2 Point Value = 3 Point Value = 5 Age 41-60 Minor surgery BMI > 25 kg/m2 Swollen legs Varicose veins or History of unexplained or recurrent spontaneous Oral contraceptives or hormone replacement Sepsis (< 1 month) Serious lung disease, including pneumonia (< 1 month) Abnormal pulmonary function Acute myocardial infarction Congestive heart failure (< 1 month) History of inflammatory bowel disease Medical patient at bed rest Age 61-74 Arthroscopic surgery Major open surgery (> 45 min) Laparoscopic surgery (> 45 min) Malignancy Confined to bed (> 72 hours) Immobilizing plaster cast Central venous access Age >= 75 History of VTE Family history of VTE Factor V Leiden Prothrombin [id number] Lupus anticoagulant Anticardiolipin antibodies Elevated serum homocysteine Heparin-induced thrombocytopenia Other congenital or acquired thrombophilia Stroke (< 1 month) Elective arthroplasty Hip, pelvis, or leg fracture Acute spinal cord injury (< 1 month) Prophylaxis Regimen Total Risk Factor Score Risk Level Prophylaxis Regimen 0-1 Low Early ambulation 2 Moderate Order ONE of the following: *Sequential Compression Device (SCD) *Heparin 5000 units SQ BID 3-4 Higher Order ONE of the following medications: *Heparin 5000 units SQ TID *Enoxaparin/Lovenox 40 mg SQ daily (WT < 150 kg, CrCl > 30 mL/min) *Enoxaparin/Lovenox 30 mg SQ daily (WT < 150 kg, CrCl > 10-29 mL/min) *Enoxaparin/Lovenox 30 mg SQ BID (WT < 150 kg, CrCl > 30 mL/min) AND/OR *Sequential Compression Device (SCD) 5 or more Highest Order ONE of the following medications: *Heparin 5000 units SQ TID (Preferred with Epidurals) *Enoxaparin/Lovenox 40 mg SQ daily (WT < 150 kg, CrCl > 30 mL/min) *Enoxaparin/Lovenox 30 mg SQ daily (WT < 150 kg, CrCl > 10-29 mL/min) *Enoxaparin/Lovenox 30 mg SQ BID (WT < 150 kg, CrCl > 30 mL/min) AND *Sequential Compression Device (SCD) Assessment and Plan Problem List: (1) UTI (urinary tract infection) ICD Code: N39.0 - Urinary tract infection, site not specified Status: Acute (2) Acute renal failure superimposed on stage 2 chronic kidney disease ICD Code: N17.9 - Acute kidney failure, unspecified; N18.2 - Chronic kidney disease, stage 2 (mild) (3) Generalized weakness ICD Code: R53.1 - Weakness Status: Acute Assessment and Plan 82-year-old with UTI Status post Rocephin IV 1 in ED, continue antibiotics pending urine culture Acute on chronic superimposed any kidney disease stage II Continue with gentle IV fluid hydration, monitor BUN and creatinine, and avoid all nephrotoxic drug Global weakness Discussed with family member regarding possible discharge to SNF, however patient's instead wants him discharge home when he is medically stable Consult PT Diabetes type 2 Start insulin sliding scale with fingerstick blood glucose monitoring and decrease insulin to 25 units daily from patient usual dose of 34. Hypertension Resume home medication including Norvasc Dementia Resume Namenda DVT prophylaxis: Bilateral SCDs Code Status Full code Discussed Condition With Patient, , ED physician Problem Qualifiers (1) UTI (urinary tract infection): Qualified Codes: N39.0 - Urinary tract infection, site not specified Kendrick Archuleta MD December 10, 2017 14:48
[2017-12-10] MEDS ORDERED: GLUCAGON 1 MG/ML VIAL OTHER PRN (15:00)
[2017-12-10] MEDS ORDERED: DEXTROSE 50% IN WATER 50 ML VIAL(D50) IV PUSH PRN (15:00)
[2017-12-10 15:25] VITALS: BP 156/70; PULSE 72; RESP 20; TEMP 96; O2SAT 95
[2017-12-10] MEDS: SODIUM CHLOR 0.9% 1000 ML INJ 1,000 ML IV SCH (16:34)
[2017-12-10] MEDS: INSULIN ASPART SUPPLEMENTAL SCALE SQ SCH ×2 (17:24→21:00)
[2017-12-10 20:00] VITALS: BP 158/72; PULSE 62; RESP 20; TEMP 96.9; O2SAT 97
[2017-12-10] MEDS: MEMANTINE HCL 10 MG TAB PO SCH (21:48)
[2017-12-10] MEDS: SODIUM CHLORIDE 0.9% FLUSH 10 ML FLUSH IV FLUSH SCH (21:49)
[2017-12-11] VITALS: BP 143/66; PULSE 60; RESP 20; TEMP 96.9; O2SAT 93
[2017-12-11 06:03] LABS: CHLORIDE 121 MEQ/L (98-107); SODIUM (NA) 147 MEQ/L (136-145)
[2017-12-11 06:03] LABS: AUTOMATED NEUTROPHIL # 5.3 TH/MM3 (1.8-7.7); BASOPHIL # 0.1 TH/MM3 (0-0.2); BASOPHIL % 0.9 % (0.0-2.0); EOSINOPHIL # 0.4 TH/MM3 (0-0.4); EOSINOPHIL % 5.2 % (0.0-4.0); HEMATOCRIT 36.9 % (39.0-51.0); HEMOGLOBIN 12.1 GM/DL (13.0-17.0); LYMPH % 21.6 % (9.0-44.0); LYMPHOCYTE # 1.8 TH/MM3 (1.0-4.8); MEAN CELL VOLUME 94.9 FL (80.0-100.0); MEAN CORPUSCULAR HGB CONC 32.7 % (32.0-36.0); MEAN PLATELET VOLUME 7.9 FL (7.0-11.0); MONO % 7.1 % (0.0-8.0); MONOCYTE # 0.6 TH/MM3 (0-0.9); NEUT % 65.2 % (16.0-70.0); PLATELET COUNT 417 TH/MM3 (150-450); RED BLOOD COUNT 3.89 MIL/MM3 (4.50-5.90); RED CELL DISTRIBUTION WIDTH 14.9 % (11.6-17.2); WHITE BLOOD COUNT 8.2 TH/MM3 (4.0-11.0)
[2017-12-11 06:08] LABS: ALBUMIN 2.6 GM/DL (3.4-5.0); BICARBONATE 18.9 MEQ/L (21.0-32.0); CALCIUM 7.7 MG/DL (8.5-10.1); GLUCOSE,RANDOM 118 MG/DL (74-106)
[2017-12-11 06:09] LABS: BLOOD UREA NITROGEN 21 MG/DL (7-18)
[2017-12-11 06:11] LABS: ALT (GPT) 20 U/L (12-78); AST (GOT) 14 U/L (15-37); GLOMERULAR FILTRATION RATE 39 ML/MIN (>89)
[2017-12-11 06:13] LABS: TOTAL BILIRUBIN ADULT 0.2 MG/DL (0.2-1.0); TOTAL PROTEIN 6.2 GM/DL (6.4-8.2)
[2017-12-11 06:14] LABS: ALKALINE PHOSPHATASE 153 U/L (45-117)
[2017-12-11 07:50] VITALS: BP 168/74; PULSE 60; RESP 20; TEMP 96.7; O2SAT 95
[2017-12-11] MEDS: INSULIN ASPART SUPPLEMENTAL SCALE SQ SCH ×2 (08:00→12:00)
[2017-12-11] MEDS: MEMANTINE HCL 10 MG TAB PO SCH (08:16)
[2017-12-11] MEDS: SODIUM CHLOR 0.9% 1000 ML INJ 1,000 ML IV SCH (08:16)
[2017-12-11] MEDS: SODIUM CHLORIDE 0.9% FLUSH 10 ML FLUSH IV FLUSH SCH (08:17)
[2017-12-11] MEDS ORDERED: PRAVASTATIN SOD 10 MG TAB PO SCH (09:00)
[2017-12-11] MEDS ORDERED: cefTRIAXone INJ 1,000 MG in SODIUM CHLORIDE 0.9% INJ 100 ML IV SCH (09:00)
[2017-12-11] MEDS ORDERED: amLODIPine BESYLATE 5 MG TAB PO SCH (09:00)
[2017-12-11] MEDS ORDERED: INSULIN DETEMIR 100 UNITS/ML VIAL SQ SCH ×2 (09:00)
[2017-12-11] MEDS ORDERED: PARoxetine HCL 20 MG TAB PO SCH (09:00)
[2017-12-11] MEDS ORDERED: ASPIRIN 325 MG TAB PO SCH (09:00)
--- NOTE | 2017-12-11 09:08 | HHI.PR ---
Subjective Remarks Follow-up global weakness/UTI/questionable hypothermia December 11, 2017-patient seen and examined, states he is having good night sleep and denies any shortness of breath, chest pain or dizziness. Taking p.o. without any competition nausea and vomiting this a.m. Objective Vitals Vital Signs Date Time Temp Pulse Resp B/P (MAP) Pulse Ox O2 Delivery O2 Flow Rate FiO2 12/11/17 07:50 96.7 60 20 168/74 (105) 95 12/11/17 00:00 96.9 60 20 143/66 (91) 93 12/10/17 20:00 96.9 62 20 158/72 (100) 97 12/10/17 15:25 96.0 72 20 156/70 (98) 95 12/10/17 14:53 12/10/17 14:12 62 16 144/70 (94) 94 12/10/17 12:07 97 Room Air 12/10/17 12:07 97 12/10/17 11:22 97.7 68 18 122/60 (80) 97 I/O 12/10/17 12/10/17 12/10/17 12/11/17 12/11/17 12/11/17 07:00 15:00 23:00 07:00 15:00 23:00 Intake Total 100 ml 2081 ml 1375 ml Output Total 600 ml Balance -500 ml 2081 ml 1375 ml Intake Oral 1081 ml 960 ml IV Total 100 ml 1000 ml 415 ml Output Urine Total 600 ml # Voids 1 0 3 # Bowel Movements 0 Result Diagram: 12/11/17 0415 12/11/17 0500 Imaging Last Impressions Chest X-Ray 12/10/17 1143 Signed Impressions: CONCLUSION: Minimal basilar atelectasis. No pneumothorax. Objective Remarks GENERAL: NAD SKIN: Warm and dry. HEAD: Normocephalic. EYES: No scleral icterus. No injection or drainage. NECK: Supple, trachea midline. No JVD or lymphadenopathy. CARDIOVASCULAR: Regular rate and rhythm without murmurs, gallops, or rubs. RESPIRATORY: Breath sounds equal bilaterally. No accessory muscle use. GASTROINTESTINAL: Abdomen soft, non-tender, nondistended. MUSCULOSKELETAL: No cyanosis, or edema. BACK: Nontender without obvious deformity. No CVA tenderness. A/P Problem List: (1) UTI (urinary tract infection) ICD Code: N39.0 - Urinary tract infection, site not specified Status: Acute (2) Generalized weakness ICD Code: R53.1 - Weakness Status: Acute (3) Acute renal failure superimposed on stage 2 chronic kidney disease ICD Code: N17.9 - Acute kidney failure, unspecified; N18.2 - Chronic kidney disease, stage 2 (mild) (4) DM2 (diabetes mellitus, type 2) ICD Code: E11.9 - Type 2 diabetes mellitus without complications (5) Dementia ICD Code: F03.90 - Unspecified dementia without behavioral disturbance Assessment and Plan 82-year-old with UTI Status post Rocephin IV 1 in ED, continue antibiotics pending urine culture Acute on chronic superimposed any kidney disease stage II Renal indices improving Continue with gentle IV fluid hydration, monitor BUN and creatinine, and avoid all nephrotoxic drug Global weakness Discussed with family member yesterday December 10, 2017 regarding possible discharge to SNF, however patient's instead wants him discharge home when he is medically stable Consult PT Diabetes type 2 Continue insulin sliding scale with fingerstick blood glucose monitoring and Levemir 25 units daily Hypertension Continue home medication including Norvasc Dementia Continue Namenda DVT prophylaxis: Bilateral SCDs Discharge Planning Discharge patient to home Condition on discharge: Improved Regular Diet as tolerated Ad Bianca activity Rx written:see EMR Follow-up with primary care physician in 1 week Problem Qualifiers (1) UTI (urinary tract infection): Qualified Codes: N39.0 - Urinary tract infection, site not specified Kendrick Archuleta MD December 11, 2017 09:08
[2017-12-11 11:50] VITALS: BP 168/70; PULSE 81; RESP 20; TEMP 96.8; O2SAT 95
--- NOTE | 2017-12-11 12:21 | HHI.FF ---
Face to Face Verification Diagnosis: (1) UTI (urinary tract infection) (2) Dementia (3) Generalized weakness Physical Therapy Order: Evaluate and Treat, Improve ambulation, Strength and gait training Home Health Nursing Order: Medical education Signs/symptoms of disease process Medication education-adverse effect Nursing assessment with vital signs I have seen patient Romain Vega on 12/11/17. My clinical findings support the need for the requested home health care services because: Deconditioned w/ increased weakness Limited ability to care for self I certify that my clinical findings support that this patient is homebound because: Unsteady gait/balance Keara Lozano December 11, 2017 12:21
[2017-12-11] MEDS ORDERED: CIPR500T2 PO (12:27)
[2017-12-11] MEDS ORDERED: LANTUS2P SQ (12:27)
--- NOTE | 2017-12-11 12:28 | HHI.DCPOC ---
Discharge Care Plan Diagnosis: (1) Dementia (2) Generalized weakness (3) UTI (urinary tract infection) (4) Failure of outpatient treatment Goals to Promote Your Health * To prevent worsening of your condition and complications * To maintain your health at the optimal level Directions to Meet Your Goals Take your medications as prescribed Follow your dietary instruction Follow activity as directed Keep your appointments as scheduled Take your immunizations and boosters as scheduled If your symptoms worsen call your PCP, if no PCP go to Urgent Care Center or Emergency Room Smoking is Dangerous to Your Health. Avoid second hand smoke Call the 24-hour hour crisis hotline for domestic abuse at Keara Lozano December 11, 2017 12:28
== END 2017-12-11 14:35 | disposition home or self-care (01) ==
LOC: PHED 11:14 → INTOOBSV 14:20 → PHEDA 14:20 → PH3A 15:07
PROVIDERS: ADMIT Hospitalist; ATTEND Hospitalist
DX: N39.0 Urinary tract infection, site not specified (principal); N18.2 Chronic kidney disease, stage 2 (mild); E11.22 Type 2 diabetes mellitus with diabetic chronic kidney disease; J44.9 Chronic obstructive pulmonary disease, unspecified; Z85.51 Personal history of malignant neoplasm of bladder; I12.9 Hypertensive chronic kidney disease with stage 1 through stage 4 chronic kidney disease, or unspecified chronic kidney disease; F17.210 Nicotine dependence, cigarettes, uncomplicated; Z79.899 Other long term (current) drug therapy; I44.0 Atrioventricular block, first degree; F03.90 Unspecified dementia, unspecified severity, without behavioral disturbance, psychotic disturbance, mood disturbance, and anxiety; K70.30 Alcoholic cirrhosis of liver without ascites; R53.1 Weakness; B96.89 Other specified bacterial agents as the cause of diseases classified elsewhere; J98.11 Atelectasis; R94.31 Abnormal electrocardiogram [ECG] [EKG]; Z79.4 Long term (current) use of insulin
CPT/HCPCS: 71046; 80053; 81001; 82948; 83605; 83735; 84484; 85025; 85610; 87040; 87086; 93005; 96361; 96365; 96372; 97162; 99285; G0378; G8987; G8988; J0696; J1815; J7030; J7040; 80048

== ENCOUNTER 2018-02-04 12:37 | Observation (INO) ==
[2018-02-04] MEDS ORDERED: Pantoprazole Inj 40 MG Vial IV.PUSH ONE (13:21)
--- NOTE | 2018-02-04 13:26 | ED ---
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 Patient denies pain. Family also reports that his urine output has decreased over the last 2 days. No nausea, nor vomiting. No fever nor chills. He is on Levaquin for a UTI at this time. MD complaint: blood streaked stool and gross hematochezia Onset (ago): day(s) Pain Consistency: constant Severity: mild Relieving factors: none Exacerbating factors: none Context: liver disease Associated symptoms: denies other symptoms Treatments Prior to Arrival: none Related Data Home Medications Medication Instructions Recorded Confirmed amlodipine 5 mg PO DAILY 02/04/18 02/04/18 aspirin [Aspirin Low Dose] 81 mg PO DAILY 02/04/18 02/04/18 folic acid 0.8 mg PO DAILY 02/04/18 02/04/18 insulin glargine [Lantus U-100 24 unit SUB-Q DAILY 02/04/18 02/04/18 Insulin] levofloxacin 500 mg PO Q24H 02/04/18 02/04/18 lovastatin 10 mg PO DAILY 02/04/18 02/04/18 memantine 10 mg PO BID 02/04/18 02/04/18 paroxetine HCl 20 mg PO DAILY 02/04/18 02/04/18 tramadol 50 mg PO BID 02/04/18 02/04/18 Allergies Allergy/AdvReac Type Severity Reaction Status Date / Time No Known Allergies Allergy Verified 02/04/18 12:46 Review of Systems Except as stated in HPI: all other systems reviewed are negative Constitutional Denies fever(s) Eyes Denies blurry vision ENT Denies bleeding gums and Denies nasal congestion Cardiovascular Denies chest pain Respiratory Denies dyspnea Gastrointestinal Denies abdominal pain, Reports hematochezia, Denies nausea and Denies vomiting Genitourinary Comments: Decreased urine output Musculoskeletal Denies back pain Integumentary/Breasts Denies rash Neurologic Denies headache(s) Psychiatric Denies suicidal ideation PMFSH Medical History Medical History Alzheimer disease (Acute) Cirrhosis of liver (Acute) Diabetes (Acute) Hypertension (Acute) Kidney disease (Acute) Social History Social History Second Hand Smoke Exposure: Yes Smoking Status: Heavy tobacco smoker Tobacco Type: Cigarettes How Often Do You Have a Drink Containing Alcohol: Never Recent Travel in [facility] within the Last 8 Weeks: No Recent Out of Country Travel within the Last 8 Weeks: No Exam Narrative Exam Narrative: GENERAL: Well-appearing elderly male, in no acute distress SKIN: Focused skin assessment warm/dry. HEAD: Atraumatic. Normocephalic. EYES: Pupils equal and round. No scleral icterus. No injection or drainage. ENT: No nasal bleeding or discharge. Mucous membranes pink and moist. NECK: Trachea midline. No JVD. CARDIOVASCULAR: Regular rate and rhythm. No murmur appreciated. RESPIRATORY: No accessory muscle use. Clear to auscultation. Breath sounds equal bilaterally. GASTROINTESTINAL: Abdomen soft, non-tender, nondistended. Hepatic and splenic margins not palpable. Rectal exam shows no hemorrhoids but melena present with gross blood. MUSCULOSKELETAL: No obvious deformities. No clubbing. No cyanosis. No edema. NEUROLOGICAL: Awake and alert. No obvious cranial nerve deficits. Motor grossly within normal limits. Normal speech. PSYCHIATRIC: Appropriate mood and affect; insight and judgment normal. Course Hospital Course: On arrival patient was placed on cooler deliverer, IV was established, labs were ordered, and he was given a bolus of Protonix IV. Initial Documented Vital Signs Temperature 97.6 F 02/04/18 12:46 Pulse Rate 69 02/04/18 12:46 Respiratory Rate 16 02/04/18 12:46 Blood Pressure 118/56 L 02/04/18 12:46 Pulse Oximetry 99 02/04/18 12:46 Last Documented Vital Signs Temperature 97.6 F 02/04/18 12:46 Pulse Rate 80 02/04/18 13:25 Respiratory Rate 16 02/04/18 12:46 Blood Pressure 118/56 L 02/04/18 12:46 Pulse Oximetry 100 02/04/18 13:25 Medical Decision Making MDM Narrative Medical decision making narrative: Patient is an 82-year-old male, past medical history significant for chronic kidney disease and cirrhosis, who presents with complaint of bright red blood per rectum for the last 2 days in addition to decreased urine output. He has been hemodynamically stable while in the emergency department labs reveal slightly decreased hemoglobin from his baseline 2 months ago, in addition to acute on chronic renal injury. He is more uremic than normal which may be secondary to dehydration or his GIB. He has been given a 500 cc bolus of normal saline in addition to 80 mg of Protonix IV. He will be admitted to the hospitalist for further workup and management. Differential Diagnosis Differential Diagnosis: Differential diagnosis includes but is not limited to variceal bleed, hemorrhoidal bleed, diverticulosis, renal stone, urinary tract infection. Medical Records Medical records reviewed: Yes I reviewed the patient's medical records. Lab Data Lab results reviewed: Yes I reviewed the patient's lab results. Lab results narrative: Anemia, Uremia and Acute kidney injury. Result diagrams: 02/04/18 13:40 02/04/18 13:40 Lab Results 02/04/18 02/04/18 02/04/18 Range/Units 13:40 13:40 13:40 CBC w Diff Auto diff final WBC 12.4 H (4.0-11.0) th/mm3 RBC 3.83 L (4.50-5.90) mil/mm3 Hgb 11.8 L (13.0-17.0) gm/dL Hct 36.1 L (39.0-51.0) % MCV 94.2 (80.0-100.0) fL MCH 30.8 (27.0-34.0) pg MCHC 32.7 (32.0-36.0) % RDW 14.5 (11.6-17.2) % Plt Count 373 (150-450) th/mm3 MPV 7.0 (7.0-11.0) fL Neut % (Auto) 78.7 H (16.0-70.0) % Lymph % (Auto) 12.5 (9.0-44.0) % Door % (Auto) 4.7 (0.0-8.0) % Eos % (Auto) 3.2 (0.0-4.0) % Baso % (Auto) 0.9 (0.0-2.0) % Neut # (Auto) 9.8 H (1.8-7.7) th/mm3 Lymph # (Auto) 1.5 (1.0-4.8) th/mm3 Door # (Auto) 0.6 (0.0-0.9) th/mm3 Eos # (Auto) 0.4 (0.0-0.4) th/mm3 Baso # (Auto) 0.1 (0.0-0.2) th/mm3 WBC Differential . Differential Comment . PT 9.6 L (9.8-11.6) sec INR 0.9 Ratio APTT 34.3 H (24.3-30.1) sec Sodium 137 (136-145) meq/L Potassium 4.6 (3.5-5.1) meq/L Chloride 113 H (98-107) meq/L Carbon Dioxide 18.2 L (21.0-32.0) meq/L Anion Gap 6 (5-15) meq/L BUN 46 H (7-18) mg/dL Creatinine 2.10 H (0.60-1.30) mg/dL Estimated GFR 31 L (>89) mL/min Random Glucose 366 H (74-106) mg/dL Calcium 7.9 L (8.5-10.1) mg/dL Total Bilirubin 0.2 (0.2-1.0) mg/dL AST 6 L (15-37) U/L ALT 18 (12-78) U/L Alkaline Phosphatase 164 H (45-117) U/L Total Protein 6.6 (6.4-8.2) g/dL Albumin 2.8 L (3.4-5.0) g/dL Ur Collection Type Urine Color (Yellw/Straw) Urine Clarity (Clear) Urine pH (5.0-8.5) Ur Specific [place] (1.002-1.035) Urine Protein (Neg-Trace) mg/dL Urine Glucose (UA) (Negative) mg/dL Urine Ketones (Negative) mg/dL Urine Occult Blood (Negative) Urine Nitrate (Negative) Urine Bilirubin (Negative) Urine Urobilinogen (Less than 2) mg/dL Ur Leukocyte Esterase (Negative) Urine RBC (0-3) /hpf Urine WBC (0-5) /hpf Urine WBC Clumps (None) Urine Bacteria (None) /hpf Micro UA Comment Urine Culture Comments 02/04/18 Range/Units 14:20 CBC w Diff WBC (4.0-11.0) th/mm3 RBC (4.50-5.90) mil/mm3 Hgb (13.0-17.0) gm/dL Hct (39.0-51.0) % MCV (80.0-100.0) fL MCH (27.0-34.0) pg MCHC (32.0-36.0) % RDW (11.6-17.2) % Plt Count (150-450) th/mm3 MPV (7.0-11.0) fL Neut % (Auto) (16.0-70.0) % Lymph % (Auto) (9.0-44.0) % Door % (Auto) (0.0-8.0) % Eos % (Auto) (0.0-4.0) % Baso % (Auto) (0.0-2.0) % Neut # (Auto) (1.8-7.7) th/mm3 Lymph # (Auto) (1.0-4.8) th/mm3 Door # (Auto) (0.0-0.9) th/mm3 Eos # (Auto) (0.0-0.4) th/mm3 Baso # (Auto) (0.0-0.2) th/mm3 WBC Differential Differential Comment PT (9.8-11.6) sec INR Ratio APTT (24.3-30.1) sec Sodium (136-145) meq/L Potassium (3.5-5.1) meq/L Chloride (98-107) meq/L Carbon Dioxide (21.0-32.0) meq/L Anion Gap (5-15) meq/L BUN (7-18) mg/dL Creatinine (0.60-1.30) mg/dL Estimated GFR (>89) mL/min Random Glucose (74-106) mg/dL Calcium (8.5-10.1) mg/dL Total Bilirubin (0.2-1.0) mg/dL AST (15-37) U/L ALT (12-78) U/L Alkaline Phosphatase (45-117) U/L Total Protein (6.4-8.2) g/dL Albumin (3.4-5.0) g/dL Ur Collection Type Cath Urine Color Yellow (Yellw/Straw) Urine Clarity Slight H (Clear) Urine pH 7.0 (5.0-8.5) Ur Specific [place] 1.015 (1.002-1.035) Urine Protein 100 H (Neg-Trace) mg/dL Urine Glucose (UA) 100 H (Negative) mg/dL Urine Ketones Negative (Negative) mg/dL Urine Occult Blood Moderate H (Negative) Urine Nitrate Negative (Negative) Urine Bilirubin Negative (Negative) Urine Urobilinogen 0.2 (Less than 2) mg/dL Ur Leukocyte Esterase Large H (Negative) Urine RBC 4-15 H (0-3) /hpf Urine WBC 51-189 H (0-5) /hpf Urine WBC Clumps Moderate H (None) Urine Bacteria Few H (None) /hpf Micro UA Comment Cath-culture ind Urine Culture Comments Cath-cult indicated Discharge Plan Discharge Disposition Patient Disposition: 30 Still Patient Discharge Condition Condition: Stable Discharge Details Diagnosis: ANA MARÍA (acute kidney injury), Acute GI bleeding, Anemia Physicians Team ED Provider: Vero Anne Primary Care Provider: Anirudh Antoine Rxs /Orders / Referrals /Forms Prescriptions: No Action aspirin [Aspirin Low Dose] 81 mg Tablet,Delayed Release (Dr/Ec) 81 mg PO DAILY RF: 0 insulin glargine [Lantus U-100 Insulin] 100 unit/mL Solution 24 unit SUB-Q DAILY RF: 0 amlodipine 5 mg Tablet 5 mg PO DAILY RF: 0 lovastatin 10 mg Tablet 10 mg PO DAILY RF: 0 tramadol 50 mg Tablet 50 mg PO BID RF: 0 paroxetine HCl 20 mg Tablet 20 mg PO DAILY RF: 0 levofloxacin 500 mg Tablet 500 mg PO Q24H RF: 0 folic acid 800 mcg Tablet 0.8 mg PO DAILY RF: 0 memantine 10 mg Tablet 10 mg PO BID RF: 0 Status ED Status: With Doctor
[2018-02-04 13:51] LABS: Baso # (Auto) 0.1 th/mm3 (0.0-0.2); Baso % (Auto) 0.9 % (0.0-2.0); Eos # (Auto) 0.4 th/mm3 (0.0-0.4); Eos % (Auto) 3.2 % (0.0-4.0); Hematocrit 36.1 % (39.0-51.0); Hemoglobin 11.8 gm/dL (13.0-17.0); Lymph # (Auto) 1.5 th/mm3 (1.0-4.8); Lymph % (Auto) 12.5 % (9.0-44.0); Mean Corpuscular HGB Conc 32.7 % (32.0-36.0); Mean Corpuscular Hemoglobin 30.8 pg (27.0-34.0); Mean Corpuscular Volume 94.2 fL (80.0-100.0); Mono # (Auto) 0.6 th/mm3 (0.0-0.9); Mono % (Auto) 4.7 % (0.0-8.0); Neut # (Auto) 9.8 th/mm3 (1.8-7.7); Neut % (Auto) 78.7 % (16.0-70.0); Platelet Count 373 th/mm3 (150-450); Red Blood Count 3.83 mil/mm3 (4.50-5.90); Red Cell Distribution Width 14.5 % (11.6-17.2); White Blood Count 12.4 th/mm3 (4.0-11.0)
[2018-02-04 14:01] LABS: Chloride 113 meq/L (98-107); Potassium 4.6 meq/L (3.5-5.1); Sodium 137 meq/L (136-145)
[2018-02-04 14:04] LABS: Calcium 7.9 mg/dL (8.5-10.1)
[2018-02-04 14:05] LABS: Albumin 2.8 g/dL (3.4-5.0); Anion Gap 6 meq/L (5-15); Blood Urea Nitrogen 46 mg/dL (7-18); Carbon Dioxide 18.2 meq/L (21.0-32.0); Glucose,Random 366 mg/dL (74-106)
[2018-02-04 14:07] LABS: Activated Partial Thrombo Time 34.3 sec (24.3-30.1); INR 0.9 Ratio; Prothrombin Time 9.6 sec (9.8-11.6)
[2018-02-04 14:08] LABS: Alanine Aminotransferase 18 U/L (12-78); Aspartate Aminotransferase 6 U/L (15-37); Glomerular Filtration Rate 31 mL/min (>89)
[2018-02-04 14:10] LABS: Total Protein 6.6 g/dL (6.4-8.2)
[2018-02-04 14:11] LABS: Alkaline Phosphatase 164 U/L (45-117)
[2018-02-04] MEDS ORDERED: Sodium Chlor 0.9% Inj 500 ML IV.SIG ONE (14:31)
[2018-02-04 15:00] LABS: Bilirubin,Urine Negative (Negative); Color,Urine Yellow (Yellw/Straw); Glucose,Urine (UA) 100 mg/dL (Negative); Leukocyte Esterase,Urine Large (Negative); Nitrite,Urine Negative (Negative); Specific Gravity,Urine 1.015 (1.002-1.035); Urobilinogen,Urine 0.2 mg/dL (Less than 2)
[2018-02-04 15:02] LABS: Clarity,Urine Slight (Clear)
[2018-02-04 15:05] LABS: WBC,Urine 51-189 /hpf (0-5)
[2018-02-04 15:06] LABS: Bacteria,Urine Few /hpf
--- NOTE | 2018-02-04 16:03 | P.HP ---
History of Present Illness Primary Care Physician: Anirudh Antoine MD Chief Complaint: Generalized weakness History of Present Illness: 82-year-old male with known history of dementia, cirrhosis, chronic kidney disease stage III, chronic obstructive pulmonary disease, diabetes, hypertension, recurrent urinary tract infections who was brought to the hospital by his daughter today because of generalized weakness. Patient has been undergoing outpatient workup for urinary tract infection. They indicate that the patient has a urinary bladder stone in which they are trying to get removed, however the patient develops recurrent urinary tract infections in he has been on antibiotics and when he comes off of him that he starts developing infection again. As indicated that the patient family usually places a condom catheter on him every night before he goes to sleep, because of urinary incontinence. The daughter indicates that she noticed today that when he got up to walk he can only take about 10-12 steps he became very weak and shaky. She knows that whenever that happens he has an infection again so she brought him to the hospital for evaluation. Patient daughter also indicates that when she noticed his bowel movement today that there was bright red blood in it. The patient's daughter did not indicate any fever, chills, abdominal pain, chest pain, shortness of breath. She only notices generalized weakness, difficulty ambulating, and blood in stool. - Diagnosis (1) Generalized weakness (2) Hematochezia (3) Urinary tract infection (4) Chronic kidney disease, stage 3 Inpatient Certification: I certify that the inpatient services were ordered in accordance with Medicare regulations governing the order. This includes certification that hospital inpatient services are reasonable and necessary and in the case of services not specified as inpatient-only under 42 CFR 419.22(n), that they are appropriately provided as inpatient services in accordance to with the 2-midnight benchmark under 43 CFR 412.3(e) Review of Systems unobtainable due to mental condition (Information taken from daughter) Gastrointestinal: Reports bright, red blood in stools Musculoskeletal: Reports muscle weakness PMFSH - History History Provided By: Patient - Medical History Medical History: Medical History (Last Updated 02/04/18 @ 15:47 by JAY Nguyen) Alzheimer disease Chronic kidney disease, stage III (moderate) Chronic obstructive pulmonary disease Cirrhosis of liver Diabetes History of bladder cancer Hypertension Recurrent urinary tract infection Tobacco use - Surgical History Surgical History: Surgical History (Last Updated 02/04/18 @ 15:44 by JAY Nguyen) History of back surgery History of bladder surgery Status post epidural steroid injection - Family History Family History: Family History (Last Updated 02/04/18 @ 15:45 by JAY Nguyen) Other No pertinent family history - Tobacco History Second Hand Smoke Exposure: Yes Tobacco Use In Past 30 Days: Yes Smoking Status: Heavy tobacco smoker Tobacco Type: Cigarettes - Alcohol History How Often Do You Have a Drink Containing Alcohol: Never - Travel History Recent Travel in the [place] Within the Last 8 Weeks: No Recent Travel Out of the Country Within the Last 8 Weeks: No - Immunization History Tetanus Immunization: <5 Years Medications and Allergies Active Medications: Active Medications Sodium Chloride (Ns Flush) 2 ml IV.FLUSH PRN PRN PRN Reason: FLUSH AFTER USING IV ACCESS Allergies Allergy/AdvReac Type Severity Reaction Status Date / Time No Known Allergies Allergy Verified 02/04/18 12:46 Home Medications Medication Instructions Recorded Confirmed Type amlodipine 5 mg PO DAILY 02/04/18 02/04/18 History aspirin [Aspirin Low Dose] 81 mg PO DAILY 02/04/18 02/04/18 History folic acid 0.8 mg PO DAILY 02/04/18 02/04/18 History insulin glargine [Lantus U-100 24 unit SUB-Q DAILY 02/04/18 02/04/18 History Insulin] levofloxacin 500 mg PO Q24H 02/04/18 02/04/18 History lovastatin 10 mg PO DAILY 02/04/18 02/04/18 History memantine 10 mg PO BID 02/04/18 02/04/18 History paroxetine HCl 20 mg PO DAILY 02/04/18 02/04/18 History tramadol 50 mg PO BID 02/04/18 02/04/18 History Exam Vital signs: Vital Signs 02/04/18 12:46 02/04/18 13:25 Temperature 97.6 F Pulse Rate 69 80 Respiratory Rate 16 Blood Pressure 118/56 L Pulse Oximetry 99 100 Intake & Output 02/03/18 02/04/18 02/04/18 18:59 06:59 18:59 Weight 90 kg Narrative: GENERAL: Well-developed, well-nourished, in no acute distress. alert and orientated to person, year, month, family members at bedside HEENT: Head is normocephalic without any lesions or masses noted. Facial features are symmetric. Eyes: Pupils equal round reactive to light. Extraocular muscles are intact. Conjunctivae were clear. Oropharyngeal: Pharynx without any erythema edema. Tongue is midline without deviation. Buccal mucosa is moist without any masses or lesions NECK: Supple without any masses. Trachea midline no deviation. No JVD, no bruits are appreciated CARDIAC: Regular rhythm, regular rate. S1/S2 are heard. No murmurs gallops or rubs. LUNGS: Clear to auscultation bilaterally. No wheeze, rhonchi or rales. No use of accessory muscles on inspiration or expiration. ABDOMEN: Soft, nontender. Nondistended. Bowel sounds heard in all 4 quadrants. No organomegaly or masses. Negative rebound, negative guarding EXTREMITIES: No edema, pulses are equal bilaterally. No cyanosis or clubbing NEUROLOGY: Mood and affect appear appropriate. Cranial nerves II through XII grossly intact. Muscle strength 5/5 in upper and lower extremities bilaterally. Deep tendon reflexes are 2+ in upper and lower extremities bilaterally. Results - Labs CBC & Chem 7: 02/04/18 13:40 02/04/18 13:40 Labs: Laboratory Results - last 24 hr 02/04/18 02/04/18 02/04/18 13:40 13:40 13:40 CBC w Diff Auto diff final WBC 12.4 H RBC 3.83 L Hgb 11.8 L Hct 36.1 L MCV 94.2 MCH 30.8 MCHC 32.7 RDW 14.5 Plt Count 373 MPV 7.0 Neut % (Auto) 78.7 H Lymph % (Auto) 12.5 [place] % (Auto) 4.7 Eos % (Auto) 3.2 Baso % (Auto) 0.9 Neut # (Auto) 9.8 H Lymph # (Auto) 1.5 [place] # (Auto) 0.6 Eos # (Auto) 0.4 Baso # (Auto) 0.1 WBC Differential . Differential Comment . PT 9.6 L INR 0.9 APTT 34.3 H Sodium 137 Potassium 4.6 Chloride 113 H Carbon Dioxide 18.2 L Anion Gap 6 BUN 46 H Creatinine 2.10 H Estimated GFR 31 L Random Glucose 366 H Calcium 7.9 L Total Bilirubin 0.2 AST 6 L ALT 18 Alkaline Phosphatase 164 H Total Protein 6.6 Albumin 2.8 L Ur Collection Type Urine Color Urine Clarity Urine pH Ur Specific [place] Urine Protein Urine Glucose (UA) Urine Ketones Urine Occult Blood Urine Nitrate Urine Bilirubin Urine Urobilinogen Ur Leukocyte Esterase Urine RBC Urine WBC Urine WBC Clumps Urine Bacteria Micro UA Comment Urine Culture Comments Blood Type Antibody Screen 02/04/18 02/04/18 13:40 14:20 CBC w Diff WBC RBC Hgb Hct MCV MCH MCHC RDW Plt Count MPV Neut % (Auto) Lymph % (Auto) [place] % (Auto) Eos % (Auto) Baso % (Auto) Neut # (Auto) Lymph # (Auto) [place] # (Auto) Eos # (Auto) Baso # (Auto) WBC Differential Differential Comment PT INR APTT Sodium Potassium Chloride Carbon Dioxide Anion Gap BUN Creatinine Estimated GFR Random Glucose Calcium Total Bilirubin AST ALT Alkaline Phosphatase Total Protein Albumin Ur Collection Type Cath Urine Color Yellow Urine Clarity Slight H Urine pH 7.0 Ur Specific [place] 1.015 Urine Protein 100 H Urine Glucose (UA) 100 H Urine Ketones Negative Urine Occult Blood Moderate H Urine Nitrate Negative Urine Bilirubin Negative Urine Urobilinogen 0.2 Ur Leukocyte Esterase Large H Urine RBC 4-15 H Urine WBC 51-189 H Urine WBC Clumps Moderate H Urine Bacteria Few H Micro UA Comment Cath-culture ind Urine Culture Comments Cath-cult indicated Blood Type B Positive Antibody Screen Negative Caprini VTE Risk Assessment Caprini VTE Risk Assessment: Moderate/High Risk (score >= 2) VTE Pharmacological Exception Reason: Active bleeding Caprini Risk Assessment Model: Point Value = 1 Point Value = 2 Point Value = 3 Point Value = 5 Age 41-60 Minor surgery BMI > 25 kg/m2 Swollen legs Varicose veins or History of unexplained or recurrent spontaneous Oral contraceptives or hormone replacement Sepsis (< 1 month) Serious lung disease, including pneumonia (< 1 month) Abnormal pulmonary function Acute myocardial infarction Congestive heart failure (< 1 month) History of inflammatory bowel disease Medical patient at bed rest Age 61-74 Arthroscopic surgery Major open surgery (> 45 min) Laparoscopic surgery (> 45 min) Malignancy Confined to bed (> 72 hours) Immobilizing plaster cast Central venous access Age >= 75 History of VTE Family history of VTE Factor V Leiden Prothrombin [id number] Lupus anticoagulant Anticardiolipin antibodies Elevated serum homocysteine Heparin-induced thrombocytopenia Other congenital or acquired thrombophilia Stroke (< 1 month) Elective arthroplasty Hip, pelvis, or leg fracture Acute spinal cord injury (< 1 month) Prophylaxis Regimen: Total Risk Factor Score Risk Level Prophylaxis Regimen 0-1 Low Early ambulation 2 Moderate Order ONE of the following: *Sequential Compression Device (SCD) *Heparin 5000 units SQ BID 3-4 Higher Order ONE of the following medications: *Heparin 5000 units SQ TID *Enoxaparin/Lovenox 40 mg SQ daily (WT < 150 kg, CrCl > 30 mL/min) *Enoxaparin/Lovenox 30 mg SQ daily (WT < 150 kg, CrCl > 10-29 mL/min) *Enoxaparin/Lovenox 30 mg SQ BID (WT < 150 kg, CrCl > 30 mL/min) AND/OR *Sequential Compression Device (SCD) 5 or more Highest Order ONE of the following medications: *Heparin 5000 units SQ TID (Preferred with Epidurals) *Enoxaparin/Lovenox 40 mg SQ daily (WT < 150 kg, CrCl > 30 mL/min) *Enoxaparin/Lovenox 30 mg SQ daily (WT < 150 kg, CrCl > 10-29 mL/min) *Enoxaparin/Lovenox 30 mg SQ BID (WT < 150 kg, CrCl > 30 mL/min) AND *Sequential Compression Device (SCD) Assessment and Plan - Assessment (1) Generalized weakness Code(s): R53.1 - Weakness Status: Acute (2) Hematochezia Code(s): K92.1 - Melena Status: Acute (3) Urinary tract infection Code(s): N39.0 - Urinary tract infection, site not specified Status: Acute (4) Chronic kidney disease, stage 3 Code(s): N18.3 - Chronic kidney disease, stage 3 (moderate) Status: Acute - Plan Generalized weakness -This could be multifactorial with patient having anemia, cirrhosis, hematochezia, dehydration, urinary tract infection -Continue treatment for other etiologies and monitor patient's response -Obtain physical therapy evaluation Urinary tract infection -Started on empirical antibiotics include Zosyn, renal dose -Continue monitor urine culture for appropriate antibiotics Hematochezia -Continue monitor hemoglobin hematocrit, transfuse if hemoglobin below 8.0 -Continue Protonix 40 mg IV every 12 hours -Consult GI for further recommendations Metabolic acidosis -Unknown etiology at this time -Could be secondary to renal failure, uncontrolled diabetes, sepsis, infection -Check lactic acid level -Continue monitor for improvement chronic kidney disease stage III -Creatinine appears to be stable from 3 months ago -Continue to monitor renal function -We will start IV fluid -Avoid nephrotoxins Diabetes, Uncontrolled -Accu-Cheks and sliding scale insulin -Diabetic diet -Obtain hemoglobin A1c Hypertension, hyperlipidemia -Continue home medications DVT prevention -Sequential compression devices, avoid chemical prophylaxis secondary to hematochezia Discussed Condition With: Dr. Bustamante, patient, daughter, , ER physician, nursing staff
[2018-02-04] MEDS ORDERED: Dextrose 50% in Water 50 ML Vial IV.PUSH PRN (16:07)
[2018-02-04] MEDS: Insulin NovoLOG Aspart Correctional Sugar Inj SQ SCH ×2 (16:48→20:55)
[2018-02-04] MEDS: Sod Chloride 0.9% Inj 1,000 ML IV.CONT SCH (16:48)
[2018-02-04] MEDS: Pantoprazole Inj 40 MG Vial IV.PUSH SCH (16:49)
[2018-02-04] MEDS: Piperacil/Tazo 2.25 GM Premix 50 ML IV.SIG SCH ×2 (16:49→23:01)
[2018-02-04 17:47] LABS: Hematocrit 31.4 % (39.0-51.0); Hemoglobin 10.7 gm/dL (13.0-17.0)
--- NOTE | 2018-02-04 21:45 | P.CONGI ---
History of Present Illness Consult date: 02/04/18 Consult reason: Hematochezia Chief complaint: GI BLEED, ANA MARÍA History of Present Illness: Patient is an 20-year-old gentleman who has history of dementia, cirrhosis, chronic kidney disease, COPD, diabetes, hypertension, recurrent UTIs was noted to be weak and unable to walk at home which prompted the daughter to bring him in suspecting that he may have an infection she also reports an episode of hematochezia patient is currently laying in bed comfortable no complaints pleasant but to self and place only otherwise confused He claims to have had a colonoscopy in the past couple of years the nurse has not seen any further episodes of rectal bleeding I attempted to call the daughter Alla but was only able to get her voicemail Review of Systems All other systems reviewed negative except as stated in HPI [facility] - History History Provided By: Patient - Medical History Medical History: Medical History (Last Updated 02/04/18 @ 15:47 by JAY Nguyen) Alzheimer disease Chronic kidney disease, stage III (moderate) Chronic obstructive pulmonary disease Cirrhosis of liver Diabetes History of bladder cancer Hypertension Recurrent urinary tract infection Tobacco use - Surgical History Surgical History: Surgical History (Last Updated 02/04/18 @ 15:44 by JAY Nguyen) History of back surgery History of bladder surgery Status post epidural steroid injection - Family History Family History: Family History (Last Updated 02/04/18 @ 15:45 by JAY Nguyen) Other No pertinent family history - Tobacco History Second Hand Smoke Exposure: Yes Tobacco Use In Past 30 Days: Yes Smoking Status: Current every day smoker Tobacco Type: Cigarettes - Alcohol History How Often Do You Have a Drink Containing Alcohol: Monthly or less - Substance Use History Substance History: No History of Abuse - Travel History Recent Travel in the [facility] Within the Last 8 Weeks: No Recent Travel Out of the Country Within the Last 8 Weeks: No - Immunization History Tetanus Immunization: <5 Years Medications and Allergies Active Medications: Active Medications Amlodipine Besylate (Norvasc) 5 mg PO DAILY SERA Dextrose (D50w Vial) 50 ml IV.PUSH UNSCH PRN PRN Reason: PER HYPOGLYCEMIA PROTOCOL Folic Acid (Folic Acid) 1 mg PO DAILY SERA Glucagon (Glucagon Inj) 1 mg OTHER PRN PRN PRN Reason: for Hypoglycemia Protocol Sodium Chloride (Ns Inj) 1,000 mls @ 100 mls/hr IV.CONT .Q10H SERA Last Admin: 02/04/18 16:48 Dose: 100 mls/hr Piperacillin/Tazobactam/Dextrose (Zosyn 2.25 Gm Premix) 50 mls @ 100 mls/hr IV.SIG Q6H [facility] Last Infusion: 02/04/18 18:14 Dose: Infused Insulin Aspart (Novolog Insulin Correctional Sugar Inj) 0 unit SQ ACHS [facility]; Protocol Last Admin: 02/04/18 20:55 Dose: 1 unit Memantine (Namenda) 10 mg PO BID [facility] Last Admin: 02/04/18 20:51 Dose: 10 mg Ondansetron HCl (Zofran Inj) 4 mg IV.PUSH Q6H PRN PRN Reason: NAUSEA Pantoprazole Sodium (Protonix Inj) 40 mg IV.PUSH Q12HR [facility] Last Admin: 02/04/18 16:49 Dose: Not Given Paroxetine HCl (Paxil) 20 mg PO DAILY [facility] Pravastatin Sodium (Pravachol) 10 mg PO DAILY [facility] Last Admin: 02/04/18 17:19 Dose: Not Given Sodium Chloride (Ns Flush) 2 ml IV.FLUSH BID [facility] Last Admin: 02/04/18 20:53 Dose: 2 ml Sodium Chloride (Ns Flush) 2 ml IV.FLUSH PRN PRN PRN Reason: FLUSH AFTER USING IV ACCESS Allergies Allergy/AdvReac Type Severity Reaction Status Date / Time No Known Allergies Allergy Verified 02/04/18 12:46 Home Medications Medication Instructions Recorded Confirmed Type amlodipine 5 mg PO DAILY 02/04/18 02/04/18 History aspirin [Aspirin Low Dose] 81 mg PO DAILY 02/04/18 02/04/18 History folic acid 0.8 mg PO DAILY 02/04/18 02/04/18 History insulin glargine [Lantus U-100 24 unit SUB-Q DAILY 02/04/18 02/04/18 History Insulin] levofloxacin 500 mg PO Q24H 02/04/18 02/04/18 History lovastatin 10 mg PO DAILY 02/04/18 02/04/18 History memantine 10 mg PO BID 02/04/18 02/04/18 History paroxetine HCl 20 mg PO DAILY 02/04/18 02/04/18 History tramadol 50 mg PO BID 07/25/18 07/25/18 History Exam Vital signs: Vital Signs 02/04/18 12:46 02/04/18 13:25 02/04/18 15:57 Temperature 97.6 F Pulse Rate 69 80 68 Respiratory Rate 16 18 Blood Pressure 118/56 L 151/89 H Pulse Oximetry 99 100 97 02/04/18 16:17 02/04/18 17:08 02/04/18 20:00 Temperature 96.2 F L 96 F L Pulse Rate 60 64 Respiratory Rate 18 20 Blood Pressure 145/65 H 121/64 Pulse Oximetry 97 97 96 Intake & Output 02/04/18 02/04/18 02/05/18 06:59 18:59 06:59 Intake Total 740 / 740 Output Total 0 / 0 Balance 740 / 740 Weight 90 kg Intake: IV 500 / 500 Zosyn 2.25 GM Premix 50 ML @ 0 / 0 100 mls/hr IV.SIG Q6H SERA Rx#: [id number] NS Inj 500 ML @ Wide Open IV. 500 / 500 SIG BOLUS ONE Rx#:[id number] Oral 240 / 240 Output: Urine 0 / 0 Stool 0 / 0 - Constitutional no acute distress - Routine HEENT Exam Head: Present: normocephalic, atraumatic Eye: Present: EOMI, conjunctivae pink ENT: Present: mucous membranes moist - Routine Neck Exam Present: supple - Routine Respiratory Exam Present: CTA bilaterally - Routine Cardiovascular Exam Present: RRR - Routine Abdominal Exam Present: soft, normoactive bowel sounds. Absent: tenderness, distended - Routine Extremities Exam Absent: cyanosis, clubbing, edema - Routine Neurological Exam Present: alert. Absent: oriented X3 Results - Labs CBC & Chem 7: 02/04/18 17:40 02/04/18 13:40 Labs: Laboratory Results - last 24 hr 02/04/18 02/04/18 02/04/18 13:40 13:40 13:40 CBC w Diff Auto diff final WBC 12.4 H RBC 3.83 L Hgb 11.8 L Hct 36.1 L MCV 94.2 MCH 30.8 MCHC 32.7 RDW 14.5 Plt Count 373 MPV 7.0 Neut % (Auto) 78.7 H Lymph % (Auto) 12.5 [place] % (Auto) 4.7 Eos % (Auto) 3.2 Baso % (Auto) 0.9 Neut # (Auto) 9.8 H Lymph # (Auto) 1.5 [place] # (Auto) 0.6 Eos # (Auto) 0.4 Baso # (Auto) 0.1 WBC Differential . Differential Comment . PT 9.6 L INR 0.9 APTT 34.3 H Sodium 137 Potassium 4.6 Chloride 113 H Carbon Dioxide 18.2 L Anion Gap 6 BUN 46 H Creatinine 2.10 H Estimated GFR 31 L POC Glucose Random Glucose 366 H Lactic Acid Calcium 7.9 L Total Bilirubin 0.2 AST 6 L ALT 18 Alkaline Phosphatase 164 H Total Protein 6.6 Albumin 2.8 L Ur Collection Type Urine Color Urine Clarity Urine pH Ur Specific [place] Urine Protein Urine Glucose (UA) Urine Ketones Urine Occult Blood Urine Nitrate Urine Bilirubin Urine Urobilinogen Ur Leukocyte Esterase Urine RBC Urine WBC Urine WBC Clumps Urine Bacteria Micro UA Comment Urine Culture Comments Blood Type Antibody Screen 02/04/18 02/04/18 02/04/18 13:40 14:20 16:42 CBC w Diff WBC RBC Hgb Hct MCV MCH MCHC RDW Plt Count MPV Neut % (Auto) Lymph % (Auto) [place] % (Auto) Eos % (Auto) Baso % (Auto) Neut # (Auto) Lymph # (Auto) [place] # (Auto) Eos # (Auto) Baso # (Auto) WBC Differential Differential Comment PT INR APTT Sodium Potassium Chloride Carbon Dioxide Anion Gap BUN Creatinine Estimated GFR POC Glucose 277 H Random Glucose Lactic Acid Calcium Total Bilirubin AST ALT Alkaline Phosphatase Total Protein Albumin Ur Collection Type Cath Urine Color Yellow Urine Clarity Slight H Urine pH 7.0 Ur Specific [place] 1.015 Urine Protein 100 H Urine Glucose (UA) 100 H Urine Ketones Negative Urine Occult Blood Moderate H Urine Nitrate Negative Urine Bilirubin Negative Urine Urobilinogen 0.2 Ur Leukocyte Esterase Large H Urine RBC 4-15 H Urine WBC 51-189 H Urine WBC Clumps Moderate H Urine Bacteria Few H Micro UA Comment Cath-culture ind Urine Culture Comments Cath-cult indicated Blood Type B Positive Antibody Screen Negative 02/04/18 02/04/18 02/04/18 17:40 17:40 20:48 CBC w Diff WBC RBC Hgb 10.7 L Hct 31.4 L MCV MCH MCHC RDW Plt Count MPV Neut % (Auto) Lymph % (Auto) [place] % (Auto) Eos % (Auto) Baso % (Auto) Neut # (Auto) Lymph # (Auto) [place] # (Auto) Eos # (Auto) Baso # (Auto) WBC Differential Differential Comment PT INR APTT Sodium Potassium Chloride Carbon Dioxide Anion Gap BUN Creatinine Estimated GFR POC Glucose 195 H Random Glucose Lactic Acid 1.5 Calcium Total Bilirubin AST ALT Alkaline Phosphatase Total Protein Albumin Ur Collection Type Urine Color Urine Clarity Urine pH Ur Specific [place] Urine Protein Urine Glucose (UA) Urine Ketones Urine Occult Blood Urine Nitrate Urine Bilirubin Urine Urobilinogen Ur Leukocyte Esterase Urine RBC Urine WBC Urine WBC Clumps Urine Bacteria Micro UA Comment Urine Culture Comments Blood Type Antibody Screen Assessment and Plan - Plan Episode of hematochezia currently no evidence of active bleeding with stable vital signs I am not even able to detect any signs or symptoms of cirrhosis which is mentioned in his chart has a past medical history It is also unclear to me as to how much the daughter would like for us to do regarding patient's care At this point I do agree with current supportive care Monitor labs and transfuse as needed Continue with PPI Further recommendations shall depend on his hospital course
[2018-02-05 03:43] LABS: Hematocrit 30.9 % (39.0-51.0); Hemoglobin 9.9 gm/dL (13.0-17.0)
[2018-02-05] MEDS: Sod Chloride 0.9% Inj 1,000 ML IV.CONT SCH ×3 (03:45→23:10)
[2018-02-05] MEDS: Piperacil/Tazo 2.25 GM Premix 50 ML IV.SIG SCH ×4 (04:13→21:25)
[2018-02-05 07:21] LABS: Baso % (Auto) 0.1 % (0.0-2.0); Eos # (Auto) 0.5 th/mm3 (0.0-0.4); Eos % (Auto) 4.8 % (0.0-4.0); Hemoglobin 10.4 gm/dL (13.0-17.0); Lymph # (Auto) 1.9 th/mm3 (1.0-4.8); Lymph % (Auto) 17.1 % (9.0-44.0); Mean Corpuscular HGB Conc 34.6 % (32.0-36.0); Mean Corpuscular Hemoglobin 31.7 pg (27.0-34.0); Mean Corpuscular Volume 91.6 fL (80.0-100.0); Mean Platelet Volume 7.8 fL (7.0-11.0); Mono # (Auto) 0.7 th/mm3 (0.0-0.9); Mono % (Auto) 6.1 % (0.0-8.0); Neut # (Auto) 7.9 th/mm3 (1.8-7.7); Neut % (Auto) 71.9 % (16.0-70.0); Platelet Count 316 th/mm3 (150-450); Red Blood Count 3.28 mil/mm3 (4.50-5.90); Red Cell Distribution Width 14.5 % (11.6-17.2)
[2018-02-05 07:54] LABS: Alanine Aminotransferase 16 U/L (12-78); Albumin 2.4 g/dL (3.4-5.0); Alkaline Phosphatase 136 U/L (45-117); Anion Gap 8 meq/L (5-15); Aspartate Aminotransferase 6 U/L (15-37); Blood Urea Nitrogen 38 mg/dL (7-18); Calcium 7.5 mg/dL (8.5-10.1); Carbon Dioxide 18.4 meq/L (21.0-32.0); Chloride 122 meq/L (98-107); Glomerular Filtration Rate 32 mL/min (>89); Glucose,Random 92 mg/dL (74-106); Sodium 148 meq/L (136-145); Total Protein 5.7 g/dL (6.4-8.2)
[2018-02-05] MEDS: Folic Acid 1 MG Tablet PO SCH (08:31)
[2018-02-05] MEDS: amLODIPine 5 MG Tablet PO SCH (08:31)
[2018-02-05] MEDS: Pantoprazole Inj 40 MG Vial IV.PUSH SCH (08:31)
[2018-02-05] MEDS: Insulin NovoLOG Aspart Correctional Sugar Inj SQ SCH ×4 (09:58→21:24)
--- NOTE | 2018-02-05 13:18 | P.PN ---
Subjective Interval history: Patient seen and examined today for follow-up on generalized weakness, urinary tract infection, hematochezia. Patient laying in bed comfortable. Denies any new complaints. Did discuss with patient's daughter who is very eager for him to go home. Patient vital signs remained stable, patient is afebrile. Physical Exam Vital signs: Vital Signs 02/04/18 13:25 02/04/18 15:57 02/04/18 16:17 Temperature Pulse Rate 80 68 Respiratory Rate 18 Blood Pressure 151/89 H Pulse Oximetry 100 97 97 02/04/18 17:08 02/04/18 20:00 02/05/18 00:00 Temperature 96.2 F L 96 F L 97.7 F Pulse Rate 60 64 55 L Respiratory Rate 18 20 20 Blood Pressure 145/65 H 121/64 119/59 L Pulse Oximetry 97 96 96 02/05/18 07:28 02/05/18 07:30 02/05/18 11:40 Temperature 96.8 F L 97 F L Pulse Rate 60 64 Respiratory Rate 20 20 Blood Pressure 118/57 L 122/59 L Pulse Oximetry 95 97 95 Intake & Output 02/04/18 02/05/18 02/05/18 18:59 06:59 18:59 Intake Total 740 / 740 1110 / 1110 50 / 50 Output Total 0 / 0 400 / 400 Balance 740 / 740 1110 / 1110 -350 / -350 Weight 90 kg 89.4 kg Intake: IV 500 / 500 1050 / 1050 50 / 50 NS Inj 1,000 ML @ 100 mls/hr IV 1000 / 1000 .CONT .Q10H SERA Rx#:[id number] Zosyn 2.25 GM Premix 50 ML @ 0 / 0 50 / 50 50 / 50 100 mls/hr IV.SIG Q6H SERA Rx#: [id number] NS Inj 500 ML @ Wide Open IV. 500 / 500 SIG BOLUS ONE Rx#:[id number] Oral 240 / 240 60 / 60 Output: Urine 0 / 0 400 / 400 Stool 0 / 0 Other: # Voids 2 # Urine Diapers 552 Narrative: GENERAL: Well-developed, well-nourished, in no acute distress. alert and orientated to person, year, month, HEENT: Head is normocephalic without any lesions or masses noted. Facial features are symmetric. Eyes: Extraocular muscles are intact. Conjunctivae were clear. NECK: Supple without any masses. Trachea midline no deviation. No JVD, CARDIAC: Regular rhythm, regular rate. S1/S2 are heard. No murmurs gallops or rubs. LUNGS: Clear to auscultation bilaterally. No wheeze, rhonchi or rales. No use of accessory muscles on inspiration or expiration. ABDOMEN: Soft, nontender. Nondistended. Bowel sounds heard in all 4 quadrants. No organomegaly or masses. Negative rebound, negative guarding EXTREMITIES: No edema, pulses are equal bilaterally. No cyanosis or clubbing NEUROLOGY: Mood and affect appear appropriate. Cranial nerves II through XII grossly intact. Moving all extremities, speech is clear - Urinary Catheter Management Straight Cath placed during this visit: yes Reason for continuing: Not indwelling catheter Insertion date: 02/04/18 Insertion time: 14:20 Results - Labs CBC & Chem 7: 02/05/18 06:20 02/05/18 06:20 Laboratory Results - last 24 hr 02/04/18 02/04/18 02/04/18 13:40 13:40 13:40 CBC w Diff Auto diff final WBC 12.4 H RBC 3.83 L Hgb 11.8 L Hct 36.1 L MCV 94.2 MCH 30.8 MCHC 32.7 RDW 14.5 Plt Count 373 MPV 7.0 Neut % (Auto) 78.7 H Lymph % (Auto) 12.5 [place] % (Auto) 4.7 Eos % (Auto) 3.2 Baso % (Auto) 0.9 Neut # (Auto) 9.8 H Lymph # (Auto) 1.5 [place] # (Auto) 0.6 Eos # (Auto) 0.4 Baso # (Auto) 0.1 WBC Differential . Differential Comment . PT 9.6 L INR 0.9 APTT 34.3 H Sodium 137 Potassium 4.6 Chloride 113 H Carbon Dioxide 18.2 L Anion Gap 6 BUN 46 H Creatinine 2.10 H Estimated GFR 31 L POC Glucose Random Glucose 366 H Lactic Acid Calcium 7.9 L Total Bilirubin 0.2 AST 6 L ALT 18 Alkaline Phosphatase 164 H Total Protein 6.6 Albumin 2.8 L Ur Collection Type Urine Color Urine Clarity Urine pH Ur Specific [place] Urine Protein Urine Glucose (UA) Urine Ketones Urine Occult Blood Urine Nitrate Urine Bilirubin Urine Urobilinogen Ur Leukocyte Esterase Urine RBC Urine WBC Urine WBC Clumps Urine Bacteria Micro UA Comment Urine Culture Comments Blood Type Antibody Screen 02/04/18 02/04/18 02/04/18 13:40 14:20 16:42 CBC w Diff WBC RBC Hgb Hct MCV MCH MCHC RDW Plt Count MPV Neut % (Auto) Lymph % (Auto) [place] % (Auto) Eos % (Auto) Baso % (Auto) Neut # (Auto) Lymph # (Auto) [place] # (Auto) Eos # (Auto) Baso # (Auto) WBC Differential Differential Comment PT INR APTT Sodium Potassium Chloride Carbon Dioxide Anion Gap BUN Creatinine Estimated GFR POC Glucose 277 H Random Glucose Lactic Acid Calcium Total Bilirubin AST ALT Alkaline Phosphatase Total Protein Albumin Ur Collection Type Cath Urine Color Yellow Urine Clarity Slight H Urine pH 7.0 Ur Specific [place] 1.015 Urine Protein 100 H Urine Glucose (UA) 100 H Urine Ketones Negative Urine Occult Blood Moderate H Urine Nitrate Negative Urine Bilirubin Negative Urine Urobilinogen 0.2 Ur Leukocyte Esterase Large H Urine RBC 4-15 H Urine WBC 51-189 H Urine WBC Clumps Moderate H Urine Bacteria Few H Micro UA Comment Cath-culture ind Urine Culture Comments Cath-cult indicated Blood Type B Positive Antibody Screen Negative 02/04/18 02/04/18 02/04/18 17:40 17:40 20:48 CBC w Diff WBC RBC Hgb 10.7 L Hct 31.4 L MCV MCH MCHC RDW Plt Count MPV Neut % (Auto) Lymph % (Auto) [place] % (Auto) Eos % (Auto) Baso % (Auto) Neut # (Auto) Lymph # (Auto) [place] # (Auto) Eos # (Auto) Baso # (Auto) WBC Differential Differential Comment PT INR APTT Sodium Potassium Chloride Carbon Dioxide Anion Gap BUN Creatinine Estimated GFR POC Glucose 195 H Random Glucose Lactic Acid 1.5 Calcium Total Bilirubin AST ALT Alkaline Phosphatase Total Protein Albumin Ur Collection Type Urine Color Urine Clarity Urine pH Ur Specific [place] Urine Protein Urine Glucose (UA) Urine Ketones Urine Occult Blood Urine Nitrate Urine Bilirubin Urine Urobilinogen Ur Leukocyte Esterase Urine RBC Urine WBC Urine WBC Clumps Urine Bacteria Micro UA Comment Urine Culture Comments Blood Type Antibody Screen 02/05/18 02/05/18 02/05/18 03:25 06:20 06:20 CBC w Diff Auto diff final WBC 11.0 RBC 3.28 L Hgb 9.9 L 10.4 L Hct 30.9 L 30.0 L MCV 91.6 MCH 31.7 MCHC 34.6 RDW 14.5 Plt Count 316 MPV 7.8 Neut % (Auto) 71.9 H Lymph % (Auto) 17.1 [place] % (Auto) 6.1 Eos % (Auto) 4.8 H Baso % (Auto) 0.1 Neut # (Auto) 7.9 H Lymph # (Auto) 1.9 [place] # (Auto) 0.7 Eos # (Auto) 0.5 H Baso # (Auto) 0.0 WBC Differential . Differential Comment . PT INR APTT Sodium 148 H D Potassium 4.0 Chloride 122 H D Carbon Dioxide 18.4 L Anion Gap 8 BUN 38 H Creatinine 2.00 H Estimated GFR 32 L POC Glucose Random Glucose 92 D Lactic Acid Calcium 7.5 L Total Bilirubin 0.3 AST 6 L ALT 16 Alkaline Phosphatase 136 H Total Protein 5.7 L D Albumin 2.4 L Ur Collection Type Urine Color Urine Clarity Urine pH Ur Specific [place] Urine Protein Urine Glucose (UA) Urine Ketones Urine Occult Blood Urine Nitrate Urine Bilirubin Urine Urobilinogen Ur Leukocyte Esterase Urine RBC Urine WBC Urine WBC Clumps Urine Bacteria Micro UA Comment Urine Culture Comments Blood Type Antibody Screen 02/05/18 09:15 CBC w Diff WBC RBC Hgb Hct MCV MCH MCHC RDW Plt Count MPV Neut % (Auto) Lymph % (Auto) [place] % (Auto) Eos % (Auto) Baso % (Auto) Neut # (Auto) Lymph # (Auto) [place] # (Auto) Eos # (Auto) Baso # (Auto) WBC Differential Differential Comment PT INR APTT Sodium Potassium Chloride Carbon Dioxide Anion Gap BUN Creatinine Estimated GFR POC Glucose 126 H Random Glucose Lactic Acid Calcium Total Bilirubin AST ALT Alkaline Phosphatase Total Protein Albumin Ur Collection Type Urine Color Urine Clarity Urine pH Ur Specific [place] Urine Protein Urine Glucose (UA) Urine Ketones Urine Occult Blood Urine Nitrate Urine Bilirubin Urine Urobilinogen Ur Leukocyte Esterase Urine RBC Urine WBC Urine WBC Clumps Urine Bacteria Micro UA Comment Urine Culture Comments Blood Type Antibody Screen Microbiology 02/04/18 14:20 Clean Catch Urine Urine Culture - Preliminary No growth in 24 hours - Procedures None Assessment and Plan - Assessment (1) Generalized weakness Code(s): R53.1 - Weakness Status: Acute (2) Hematochezia Code(s): K92.1 - Melena Status: Acute (3) Urinary tract infection Code(s): N39.0 - Urinary tract infection, site not specified Status: Acute (4) Chronic kidney disease, stage 3 Code(s): N18.3 - Chronic kidney disease, stage 3 (moderate) Status: Acute - Plan Generalized weakness -This could be multifactorial with patient having anemia, cirrhosis, hematochezia, dehydration, urinary tract infection -Continue treatment for other etiologies and monitor patient's response -Physical therapy evaluated the patient who indicates that he walked 160 feet with contact-guard with front wheel walker. Recommending home with home health care Urinary tract infection -Continue on empirical antibiotics include Zosyn, renal dose -Continue monitor urine culture for appropriate antibiotics thus far urine culture shows no growth for 24 hours Hematochezia -Continue monitor hemoglobin hematocrit, transfuse if hemoglobin below 8.0 -Changed to Protonix 40 mg daily -Consulted GI for further recommendations who indicated that there is no signs of any active bleeding, vital signs are stable, he indicated that workup can be done outpatient, GI signed off Metabolic acidosis -Unknown etiology at this time -Could be secondary to renal failure, uncontrolled diabetes, sepsis, infection -Lactic acid level was normal -Continue monitor for improvement chronic kidney disease stage III -Creatinine appears to be stable from 3 months ago -Continue to monitor renal function -Continue IV fluid -Avoid nephrotoxins Diabetes, Uncontrolled -Accu-Cheks and sliding scale insulin -Diabetic diet -Obtain hemoglobin A1c Hypertension, hyperlipidemia -Continue home medications DVT prevention -Sequential compression devices, avoid chemical prophylaxis secondary to hematochezia Discharge Planning: Discharge planning hopefully in the next 24-48 hours once the final report of urine culture, case management consulted for home health care
--- NOTE | 2018-02-05 13:19 | P.DCO ---
- Physical Therapy Order: Evaluate and treat, Improve ambulation, Strength and gait training - Home Health Nursing Order: Medical education, Signs/symptoms of disease process, Nursing assessment with vital signs - Certification I have seen patient Romain Vega on 02/05/18. My clinical findings support the need for the requested home health care services because: Limited mobility due to disease progression, Impaired cognition/judgement, High risk of falls I certify that my clinical findings support that this patient is homebound because: Impaired cognitive ability/safety, Unsafe to leave home unassisted
--- NOTE | 2018-02-05 17:31 | P.PNGI ---
Subjective Interval history: Patient comfortable in bed denies any pain there has been no evidence of any active GI bleed patient states he tolerated intake well Physical Exam Vital signs: Vital Signs 02/04/18 20:00 02/05/18 00:00 02/05/18 07:28 Temperature 96 F L 97.7 F 96.8 F L Pulse Rate 64 55 L 60 Respiratory Rate 20 20 20 Blood Pressure 121/64 119/59 L 118/57 L Pulse Oximetry 96 96 95 02/05/18 07:30 02/05/18 11:40 02/05/18 15:25 Temperature 97 F L 96.9 F L Pulse Rate 64 61 Respiratory Rate 20 20 Blood Pressure 122/59 L 130/62 Pulse Oximetry 97 95 95 Intake & Output 02/04/18 02/05/18 02/05/18 18:59 06:59 18:59 Intake Total 740 / 740 1110 / 1110 1820 / 1820 Output Total 0 / 0 400 / 400 Balance 740 / 740 1110 / 1110 1420 / 1420 Weight 90 kg 89.4 kg Intake: IV 500 / 500 1050 / 1050 1100 / 1100 NS Inj 1,000 ML @ 100 mls/hr IV 1000 / 1000 1000 / 1000 .CONT .Q10H SERA Rx#:[id number] Zosyn 2.25 GM Premix 50 ML @ 0 / 0 50 / 50 100 / 100 100 mls/hr IV.SIG Q6H SERA Rx#: [id number] NS Inj 500 ML @ Wide Open IV. 500 / 500 SIG BOLUS ONE Rx#:[id number] Oral 240 / 240 60 / 60 720 / 720 Output: Urine 0 / 0 400 / 400 Stool 0 / 0 Other: # Voids 2 4 # Urine Diapers 552 - Constitutional no acute distress - Routine HEENT Exam Head: Present: normocephalic Eye: Present: EOMI - Routine Neck Exam Present: supple - Routine Respiratory Exam Present: CTA bilaterally - Routine Cardiovascular Exam Present: RRR - Routine Abdominal Exam Present: soft, normoactive bowel sounds - Urinary Catheter Management Straight Cath placed during this visit: yes Reason for continuing: Not indwelling catheter Insertion date: 02/04/18 Insertion time: 14:20 Results - Labs CBC & Chem 7: 02/05/18 06:20 02/05/18 06:20 Laboratory Results - last 24 hr 02/04/18 02/04/18 02/04/18 17:40 17:40 20:48 CBC w Diff WBC RBC Hgb 10.7 L Hct 31.4 L MCV MCH MCHC RDW Plt Count MPV Neut % (Auto) Lymph % (Auto) [place] % (Auto) Eos % (Auto) Baso % (Auto) Neut # (Auto) Lymph # (Auto) [place] # (Auto) Eos # (Auto) Baso # (Auto) WBC Differential Differential Comment Sodium Potassium Chloride Carbon Dioxide Anion Gap BUN Creatinine Estimated GFR POC Glucose 195 H Random Glucose Lactic Acid 1.5 Calcium Total Bilirubin AST ALT Alkaline Phosphatase Total Protein Albumin 02/05/18 02/05/18 02/05/18 03:25 06:20 06:20 CBC w Diff Auto diff final WBC 11.0 RBC 3.28 L Hgb 9.9 L 10.4 L Hct 30.9 L 30.0 L MCV 91.6 MCH 31.7 MCHC 34.6 RDW 14.5 Plt Count 316 MPV 7.8 Neut % (Auto) 71.9 H Lymph % (Auto) 17.1 [place] % (Auto) 6.1 Eos % (Auto) 4.8 H Baso % (Auto) 0.1 Neut # (Auto) 7.9 H Lymph # (Auto) 1.9 [place] # (Auto) 0.7 Eos # (Auto) 0.5 H Baso # (Auto) 0.0 WBC Differential . Differential Comment . Sodium 148 H D Potassium 4.0 Chloride 122 H D Carbon Dioxide 18.4 L Anion Gap 8 BUN 38 H Creatinine 2.00 H Estimated GFR 32 L POC Glucose Random Glucose 92 D Lactic Acid Calcium 7.5 L Total Bilirubin 0.3 AST 6 L ALT 16 Alkaline Phosphatase 136 H Total Protein 5.7 L D Albumin 2.4 L 02/05/18 02/05/18 09:15 16:50 CBC w Diff WBC RBC Hgb Hct MCV MCH MCHC RDW Plt Count MPV Neut % (Auto) Lymph % (Auto) [place] % (Auto) Eos % (Auto) Baso % (Auto) Neut # (Auto) Lymph # (Auto) [place] # (Auto) Eos # (Auto) Baso # (Auto) WBC Differential Differential Comment Sodium Potassium Chloride Carbon Dioxide Anion Gap BUN Creatinine Estimated GFR POC Glucose 126 H 206 H Random Glucose Lactic Acid Calcium Total Bilirubin AST ALT Alkaline Phosphatase Total Protein Albumin Microbiology 02/04/18 14:20 Clean Catch Urine Urine Culture - Preliminary No growth in 24 hours - Procedures None Assessment and Plan - Plan Episode of hematochezia currently no evidence of active bleeding with stable vital signs and stable blood work No clinical or biological evidence of cirrhosis Apparently the daughter is not wanting us to pursue any endoscopy at this point I do agree with current supportive care Monitor labs and transfuse as needed Continue with PPI Not much to add from a GI perspective we will sign off
[2018-02-05 22:23] LABS: Hemoglobin A1c 8.1 % (4.3-6.0)
[2018-02-06] MEDS: Piperacil/Tazo 2.25 GM Premix 50 ML IV.SIG SCH ×3 (06:06→11:12)
[2018-02-06 06:25] LABS: Potassium 3.9 meq/L (3.5-5.1)
[2018-02-06 06:26] LABS: Baso # (Auto) 0.1 th/mm3 (0.0-0.2); Baso % (Auto) 0.5 % (0.0-2.0); Eos # (Auto) 0.7 th/mm3 (0.0-0.4); Eos % (Auto) 6.5 % (0.0-4.0); Hematocrit 31.6 % (39.0-51.0); Hemoglobin 9.9 gm/dL (13.0-17.0); Lymph # (Auto) 2.1 th/mm3 (1.0-4.8); Lymph % (Auto) 18.5 % (9.0-44.0); Mean Corpuscular HGB Conc 31.2 % (32.0-36.0); Mean Corpuscular Hemoglobin 29.2 pg (27.0-34.0); Mean Corpuscular Volume 93.4 fL (80.0-100.0); Mean Platelet Volume 7.5 fL (7.0-11.0); Mono # (Auto) 0.8 th/mm3 (0.0-0.9); Neut # (Auto) 7.5 th/mm3 (1.8-7.7); Neut % (Auto) 67.5 % (16.0-70.0); Platelet Count 343 th/mm3 (150-450); Red Blood Count 3.38 mil/mm3 (4.50-5.90); Red Cell Distribution Width 15.1 % (11.6-17.2); White Blood Count 11.2 th/mm3 (4.0-11.0)
[2018-02-06 06:30] LABS: Calcium 7.5 mg/dL (8.5-10.1)
[2018-02-06 06:31] LABS: Carbon Dioxide 18.4 meq/L (21.0-32.0)
[2018-02-06] MEDS: Insulin NovoLOG Aspart Correctional Sugar Inj SQ SCH ×2 (07:45→11:22)
[2018-02-06] MEDS: amLODIPine 5 MG Tablet PO SCH (08:21)
[2018-02-06] MEDS: Folic Acid 1 MG Tablet PO SCH (08:21)
--- NOTE | 2018-02-06 09:17 | P.DS ---
Date of admission: 02/04/18 15:06 Primary care physician: Anirudh Antoine MD Brief History from admission: 82-year-old male with known history of dementia, cirrhosis, chronic kidney disease stage III, chronic obstructive pulmonary disease, diabetes, hypertension, recurrent urinary tract infections who was brought to the hospital by his daughter today because of generalized weakness. Patient has been undergoing outpatient workup for urinary tract infection. They indicate that the patient has a urinary bladder stone in which they are trying to get removed, however the patient develops recurrent urinary tract infections in he has been on antibiotics and when he comes off of him that he starts developing infection again. As indicated that the patient family usually places a condom catheter on him every night before he goes to sleep, because of urinary incontinence. The daughter indicates that she noticed today that when he got up to walk he can only take about 10-12 steps he became very weak and shaky. She knows that whenever that happens he has an infection again so she brought him to the hospital for evaluation. Patient daughter also indicates that when she noticed his bowel movement today that there was bright red blood in it. The patient's daughter did not indicate any fever, chills, abdominal pain, chest pain, shortness of breath. She only notices generalized weakness, difficulty ambulating, and blood in stool. DS: Diagnosis - Discharge Diagnosis (1) ANA MARÍA (acute kidney injury) Status: Acute (2) Acute GI bleeding Status: Acute (3) Anemia Status: Acute (4) Chronic kidney disease, stage 3 Status: Acute (5) Hematochezia Status: Acute (6) Urinary tract infection Status: Acute (7) Generalized weakness Status: Acute DS: Medications - Discharge Medications Prescriptions: ciprofloxacin HCl [Cipro] 500 mg PO Q12H 10 Days #20 tab pantoprazole 40 mg PO DAILY 14 Days #14 tab DS: Summary Hospital Course: Is an 82-year-old male patient who presented with generalized weakness. This could be multifactorial with patient having anemia, cirrhosis, hematochezia, dehydration, urinary tract infection. Physical therapy evaluated the patient who indicates that he walked 160 feet with contact-guard with front wheel walker. Recommending home with home health care, case management assisting for discharge. Patient was treated for urinary tract infection, was started on Zosyn renal dose. Urine culture grew out enterococcus urinary. Placed on Cipro. Will discharge home, and follow culture. For sensitivity. Patient also had hematochezia, was given Protonix. GI was consulted and indicated that there is no signs of active bleeding. Workup outpatient. Patient has chronic kidney disease stage III, creatinine was stable from prior review of records. Diabetes controlled with Accu-Cheks before meals at bedtime, sliding scale. Diabetic diet. Has a history of hypertension hyperlipidemia which are stable during hospitalization. Patient was discharged home to follow-up with PCP and complete antibiotics to completion. - Time Spent with Patient Total time spent providing and/or coordinating discharge services: Greater than 30 minutes - Quality: VTE Deep Vein Thrombosis/Pulmonary Embolism Present on Admission: No Exam Vital signs: Vital Signs 02/05/18 11:40 02/05/18 15:25 02/05/18 20:00 Temperature 97 F L 96.9 F L 97.5 F L Pulse Rate 64 61 59 L Respiratory Rate 20 20 20 Blood Pressure 122/59 L 130/62 131/61 Pulse Oximetry 95 95 97 02/05/18 20:35 02/06/18 00:00 02/06/18 04:00 Temperature 96.1 F L 96.2 F L Pulse Rate 62 50 L Respiratory Rate 20 18 Blood Pressure 158/68 H 127/57 L Pulse Oximetry 96 98 98 Intake & Output 02/05/18 02/06/18 02/06/18 18:59 06:59 18:59 Intake Total 1870 / 1870 1160 / 1160 Output Total 400 / 400 Balance 1470 / 1470 1160 / 1160 Weight 89.6 kg Intake: IV 1150 / 1150 1100 / 1100 NS Inj 1,000 ML @ 100 mls/hr IV 1000 / 1000 1000 / 1000 .CONT .Q10H SERA Rx#:[id number] Zosyn 2.25 GM Premix 50 ML @ 150 / 150 100 / 100 100 mls/hr IV.SIG Q6H SERA Rx#: [id number] Oral 720 / 720 60 / 60 Output: Urine 400 / 400 Other: # Voids 4 3 # Urine Diapers 552 Narrative: GENERAL: Well-developed, well-nourished patient in [facility]. SKIN: Warm and dry. No rash. HEAD: Normocephalic. Atraumatic. EYES: Pupils equal and round. No scleral icterus. No injection or drainage. ENT: No nasal bleeding or discharge. Mucous membranes pink and moist. NECK: Supple. Trachea midline. CARDIOVASCULAR: Regular rate and rhythm. S1, S2 noted. RESPIRATORY: No accessory muscle use. Clear to auscultation. Breath sounds equal bilaterally. GASTROINTESTINAL: Abdomen soft, non-tender, nondistended. Normoactive bowel sounds x4. MUSCULOSKELETAL: No obvious deformities. Extremities without clubbing, cyanosis , or edema. NEUROLOGICAL: Awake and alert. No obvious cranial nerve deficits. Motor grossly within normal limits. 5/5 muscle strength in bilateral upper and lower extremities. Normal speech. PSYCHIATRIC: Appropriate mood and affect; insight and judgment normal. Results Procedures completed during hospitalization: None Labs on day of discharge: Labs from last 24 hours 02/06/18 02/06/18 02/06/18 07:42 05:35 05:35 CBC w Diff Auto diff final WBC 11.2 H RBC 3.38 L Hgb 9.9 L Hct 31.6 L MCV 93.4 MCH 29.2 MCHC 31.2 L RDW 15.1 Plt Count 343 MPV 7.5 Neut % (Auto) 67.5 Lymph % (Auto) 18.5 [place] % (Auto) 7.0 Eos % (Auto) 6.5 H Baso % (Auto) 0.5 Neut # (Auto) 7.5 Lymph # (Auto) 2.1 [place] # (Auto) 0.8 Eos # (Auto) 0.7 H Baso # (Auto) 0.1 WBC Differential . Differential Comment . Sodium 148 H Potassium 3.9 Chloride 123 H Carbon Dioxide 18.4 L Anion Gap 7 BUN 26 H Creatinine 1.90 H Estimated GFR 34 L POC Glucose 117 H Random Glucose 124 H Hemoglobin A1c Calcium 7.5 L 02/05/18 02/05/18 02/05/18 21:23 16:50 06:20 CBC w Diff WBC RBC Hgb Hct MCV MCH MCHC RDW Plt Count MPV Neut % (Auto) Lymph % (Auto) [place] % (Auto) Eos % (Auto) Baso % (Auto) Neut # (Auto) Lymph # (Auto) [place] # (Auto) Eos # (Auto) Baso # (Auto) WBC Differential Differential Comment Sodium Potassium Chloride Carbon Dioxide Anion Gap BUN Creatinine Estimated GFR POC Glucose 149 H 206 H Random Glucose Hemoglobin A1c 8.1 H Calcium Preliminary micro results at discharge 02/04/18 14:20 Urine Culture - Preliminary Clean Catch Urine No growth in 24 hours Discharge Plan - Discharge Disposition Patient Disposition: Disch /Home Health Service - Discharge Condition Condition: Stable - Discharge Order Discharge Orders: Discharge Order (Routine); Ordered 02/06/18 Ordered By: Keara Lozano Gastroenterology Clear for Discharge (Routine); Ordered 02/05/18 Ordered By: Chris Singh - Discharge Details Anticipated Discharge Date: 02/06/18 - Physicians Team Primary Care Provider: Anirudh Antoine Attending Provider: Lennie Lopez Other Providers: Chris Singh MD
[2018-02-06] MEDS: Sod Chloride 0.9% Inj 1,000 ML IV.CONT SCH (09:24)
== END 2018-02-06 15:38 | disposition home health service (06) ==
LOC: PHED 12:37 → PH3 12:37 → INTOOBSV 15:06 → PHEDA 15:06 → PH3 16:03
PROVIDERS: ADMIT Hospitalist; ATTEND Hospitalist